=== PATIENT | male | born 1970 | race Caucasian/White ===

== ENCOUNTER → 2019-01-12 | Outpatient (CLI) | payer BC ==
[~2019-01-12] MED LIST: ASPI81CH PO; ATOR40TA PO; CEFU500T30 PO; CLIN300 PO; HYDRA25 PO; Lopressor 25 mg25 MG PO; NITR.4SL SL
[2019-01-12 09:20] LABS: BASOPHILS ABSOLUTE AUTO 0.01 K/mm3 (0.00-0.23); BASOPHILS PERCENT AUTO 0 % (0-2); EOSINOPHILS ABSOLUTE AUTO 0.11 K/mm3 (0.00-0.68); EOSINOPHILS PERCENT AUTO 2 % (0-6); Hematocrit 43.6 % (37.0-53.0); Hemoglobin 14.4 g/dL (13.5-17.5); IMMATURE GRAN ABSOLUTE AUTO 0.02 K/mm3 (0.00-0.10); IMMATURE GRAN PERCENT AUTO 0 % (0-1); LYMPHOCYTES ABSOLUTE AUTO 1.81 K/mm3 (0.84-5.20); LYMPHOCYTES PERCENT AUTO 24 % (21-46); MONOCYTES ABSOLUTE AUTO 0.62 K/mm3 (0.16-1.47); MONOCYTES PERCENT AUTO 8 % (4-13); Mean Corpuscular HGB 26.7 pg (26.0-34.0); Mean Corpuscular Volume 81 fL (80-100); Mean Platelet Volume 10.4 fL (9.1-12.4); NEUTROPHILS PERCENT AUTO 66 % (41-73); Platelet Count 237 K/mm3 (150-400); RDW Coefficient Variation 13.3 % (11.7-14.2); RDW Standard Deviation 38.6 fL (35.1-46.3); Red Blood Cell Count 5.39 M/mm3 (4.30-5.90); White Blood Cell Count 7.57 K/mm3 (4.00-11.30)
[2019-01-12 09:59] LABS: Alanine Aminotransfer (ALT/SGP 47 U/L (12-78); Albumin, Blood 3.8 g/dL (3.4-5.0); Albumin/Globulin Ratio 0.9 (0.8-1.8); Alk Phos 47 U/L (50-136); Anion Gap 9 mmol/L (6-16); Aspartate Aminotrans (AST/SGOT 23 U/L (12-37); Bilirubin, Total 0.3 mg/dL (0.1-1.0); Blood Urea Nitrogen 15 mg/dL (8-24); Bun/Creatinine Ratio 17.6 (12.0-20.0); CO2, Blood 26 mmol/L (21-32); CPK Creatine Kinase 195 U/L (39-308); Calcium, Blood 8.6 mg/dL (8.5-10.1); Chloride, Blood 106 mmol/L (98-108); Creatinine, Blood 0.85 mg/dL (0.60-1.20); Free Thyroxine 0.98 ng/dL (0.70-1.60); Globulin, Blood 4.2 g/dL (2.2-4.0); Glomerular Filtration Rate >60 (60-); Glucose, Blood 112 mg/dL (70-99); Sodium, Blood 141 mmol/L (136-145); Troponin I <0.015 ng/mL (0.000-0.040)
[2019-01-12 11:35] LABS: CHOL/HDL RATIO 3.3; Cholesterol 130 mg/dL (50-200); HDL Cholesterol 39 mg/dL (>39); LDL/HDL RATIO 1.7; Low Density Lipoprotein Chol 64 mg/dL (0-110); Triglycerides 133 mg/dL (30-160); Very Low Density Lipoprot Chol 26 mg/dL (6-32)
== END | disposition home or self-care (01) ==
LOC: LAB SHORT 09:08 → LAB EV 09:08
PROVIDERS: General Practice
DX: R07.89 Other chest pain (principal); R53.81 Other malaise
CPT/HCPCS: 80053; 80061; 82550; 84439; 84443; 84484; 85025

== ENCOUNTER 2019-01-16 19:21 | Observation (INO) | payer BC ==
[~2019-01-16] VITALS: Ht 182.9 cm; Wt 133.8 kg
[2019-01-16 20:27] LABS: BASOPHILS ABSOLUTE AUTO 0.02 K/mm3 (0.00-0.23); BASOPHILS PERCENT AUTO 0 % (0-2); EOSINOPHILS ABSOLUTE AUTO 0.21 K/mm3 (0.00-0.68); EOSINOPHILS PERCENT AUTO 2 % (0-6); Hematocrit 44.4 % (37.0-53.0); Hemoglobin 14.4 g/dL (13.5-17.5); IMMATURE GRAN ABSOLUTE AUTO 0.02 K/mm3 (0.00-0.10); IMMATURE GRAN PERCENT AUTO 0 % (0-1); LYMPHOCYTES PERCENT AUTO 24 % (21-46); MONOCYTES ABSOLUTE AUTO 0.73 K/mm3 (0.16-1.47); MONOCYTES PERCENT AUTO 8 % (4-13); Mean Corpuscular HGB 27.1 pg (26.0-34.0); Mean Corpuscular HGB Conc 32.4 g/dL (31.5-36.5); Mean Platelet Volume 10.1 fL (9.1-12.4); NEUTROPHILS ABSOLUTE AUTO 5.93 K/mm3 (1.96-9.15); NEUTROPHILS PERCENT AUTO 65 % (41-73); Platelet Count 252 K/mm3 (150-400); RDW Coefficient Variation 12.8 % (11.7-14.2); RDW Standard Deviation 38.7 fL (35.1-46.3); Red Blood Cell Count 5.32 M/mm3 (4.30-5.90); White Blood Cell Count 9.11 K/mm3 (4.00-11.30)
[2019-01-16 20:32] LABS: Mean Corpuscular Volume 84 fL (80-100)
[2019-01-16 20:47] LABS: Alanine Aminotransfer (ALT/SGP 44 U/L (12-78); Albumin, Blood 3.9 g/dL (3.4-5.0); Albumin/Globulin Ratio 0.9 (0.8-1.8); Alk Phos 50 U/L (50-136); Anion Gap 6 mmol/L (6-16); Aspartate Aminotrans (AST/SGOT 20 U/L (12-37); Bilirubin, Total 0.2 mg/dL (0.1-1.0); Blood Urea Nitrogen 17 mg/dL (8-24); Bun/Creatinine Ratio 18.1 (12.0-20.0); CO2, Blood 26 mmol/L (21-32); Calcium, Blood 8.8 mg/dL (8.5-10.1); Chloride, Blood 108 mmol/L (98-108); Creatinine, Blood 0.94 mg/dL (0.60-1.20); Globulin, Blood 4.3 g/dL (2.2-4.0); Glomerular Filtration Rate >60 (60-); Glucose, Blood 94 mg/dL (70-99); Potassium, Blood 3.5 mmol/L (3.5-5.5); Sodium, Blood 140 mmol/L (136-145); Total Protein, Blood 8.2 g/dL (6.4-8.2); Troponin I <0.015 ng/mL (0.000-0.040)
[2019-01-17] MEDS ORDERED: CEFU500T30 PO ×2 (02:22)
[2019-01-17 06:18] LABS: Very Low Density Lipoprot Chol 42 mg/dL (6-32)
[2019-01-17 06:22] LABS: CHOL/HDL RATIO 3.9; Cholesterol 136 mg/dL (50-200); HDL Cholesterol 35 mg/dL (>39); LDL/HDL RATIO 1.7; Low Density Lipoprotein Chol 59 mg/dL (0-110); Triglycerides 210 mg/dL (30-160)
[2019-01-17] MEDS ORDERED: NITR.4SL SL ×2 (13:02)
[2019-01-17] MEDS ORDERED: CLIN300 PO (13:03)
[2019-01-18 05:43] LABS: BASOPHILS ABSOLUTE AUTO 0.02 K/mm3 (0.00-0.23); BASOPHILS PERCENT AUTO 0 % (0-2); EOSINOPHILS ABSOLUTE AUTO 0.22 K/mm3 (0.00-0.68); EOSINOPHILS PERCENT AUTO 2 % (0-6); Hematocrit 46.2 % (37.0-53.0); Hemoglobin 14.7 g/dL (13.5-17.5); IMMATURE GRAN ABSOLUTE AUTO 0.02 K/mm3 (0.00-0.10); IMMATURE GRAN PERCENT AUTO 0 % (0-1); LYMPHOCYTES ABSOLUTE AUTO 2.29 K/mm3 (0.84-5.20); LYMPHOCYTES PERCENT AUTO 25 % (21-46); MONOCYTES ABSOLUTE AUTO 0.73 K/mm3 (0.16-1.47); MONOCYTES PERCENT AUTO 8 % (4-13); Mean Corpuscular HGB 26.7 pg (26.0-34.0); Mean Corpuscular HGB Conc 31.8 g/dL (31.5-36.5); Mean Corpuscular Volume 84 fL (80-100); Mean Platelet Volume 10.2 fL (9.1-12.4); NEUTROPHILS ABSOLUTE AUTO 5.79 K/mm3 (1.96-9.15); NEUTROPHILS PERCENT AUTO 64 % (41-73); Platelet Count 269 K/mm3 (150-400); RDW Standard Deviation 39.8 fL (35.1-46.3); White Blood Cell Count 9.07 K/mm3 (4.00-11.30)
[2019-01-18 06:15] LABS: Alanine Aminotransfer (ALT/SGP 38 U/L (12-78); Alk Phos 50 U/L (50-136); Anion Gap 8 mmol/L (6-16); Aspartate Aminotrans (AST/SGOT 18 U/L (12-37); Bilirubin, Total 0.7 mg/dL (0.1-1.0); Blood Urea Nitrogen 16 mg/dL (8-24); Bun/Creatinine Ratio 16.9 (12.0-20.0); CO2, Blood 25 mmol/L (21-32); Calcium, Blood 8.6 mg/dL (8.5-10.1); Chloride, Blood 109 mmol/L (98-108); Creatinine, Blood 0.95 mg/dL (0.60-1.20); Globulin, Blood 4.1 g/dL (2.2-4.0); Glomerular Filtration Rate >60 (60-); Glucose, Blood 111 mg/dL (70-99); Potassium, Blood 3.8 mmol/L (3.5-5.5); Sodium, Blood 142 mmol/L (136-145); Total Protein, Blood 8.1 g/dL (6.4-8.2)
[2019-01-18] MEDS ORDERED: ASPI81CH PO ×2 (15:27)
[2019-01-18] MEDS ORDERED: ATOR40TA PO ×2 (15:28)
[2019-01-18] MEDS ORDERED: Lopressor 25 mg25 MG PO ×2 (15:29)
[2019-01-18] MEDS ORDERED: HYDRA25 PO ×2 (15:30)
== END 2019-01-18 16:14 | disposition home or self-care (01) ==
LOC: ER 19:21 → ERHOLD 19:22 → MEDS 01-17 16:11
PROVIDERS: Family Medicine; Physician Assistant; ADMIT Hospitalist
DX: R07.9 Chest pain, unspecified (principal); I10 Essential (primary) hypertension; R94.31 Abnormal electrocardiogram [ECG] [EKG]; E78.5 Hyperlipidemia, unspecified; G47.33 Obstructive sleep apnea (adult) (pediatric); E66.01 Morbid (severe) obesity due to excess calories; Z88.0 Allergy status to penicillin; Z99.89 Dependence on other enabling machines and devices; Z68.41 Body mass index [BMI] 40.0-44.9, adult
CPT/HCPCS: 36415; 71046; 80053; 80061; 83036; 84484; 85025; 93005; 93010; 93017; 93306; 94660; 96372; 96374; 99285-25; G0378; J0360; J1650

== ENCOUNTER 2019-01-25 08:09 | Observation (INO) | payer BC ==
[~2019-01-25] VITALS: Ht 182.9 cm; Wt 131.5 kg
[2019-01-25 08:52] LABS: BASOPHILS ABSOLUTE AUTO 0.02 K/mm3 (0.00-0.23); BASOPHILS PERCENT AUTO 0 % (0-2); EOSINOPHILS ABSOLUTE AUTO 0.22 K/mm3 (0.00-0.68); EOSINOPHILS PERCENT AUTO 3 % (0-6); Hematocrit 43.5 % (37.0-53.0); IMMATURE GRAN ABSOLUTE AUTO 0.01 K/mm3 (0.00-0.10); IMMATURE GRAN PERCENT AUTO 0 % (0-1); LYMPHOCYTES ABSOLUTE AUTO 2.03 K/mm3 (0.84-5.20); LYMPHOCYTES PERCENT AUTO 26 % (21-46); MONOCYTES ABSOLUTE AUTO 0.66 K/mm3 (0.16-1.47); MONOCYTES PERCENT AUTO 9 % (4-13); Mean Corpuscular HGB 26.9 pg (26.0-34.0); Mean Corpuscular HGB Conc 32.2 g/dL (31.5-36.5); Mean Corpuscular Volume 84 fL (80-100); Mean Platelet Volume 10.4 fL (9.1-12.4); NEUTROPHILS ABSOLUTE AUTO 4.79 K/mm3 (1.96-9.15); NEUTROPHILS PERCENT AUTO 62 % (41-73); Platelet Count 234 K/mm3 (150-400); RDW Coefficient Variation 12.9 % (11.7-14.2); RDW Standard Deviation 39.6 fL (35.1-46.3); Red Blood Cell Count 5.21 M/mm3 (4.30-5.90); White Blood Cell Count 7.73 K/mm3 (4.00-11.30)
[2019-01-25 09:18] LABS: Alanine Aminotransfer (ALT/SGP 45 U/L (12-78); Albumin, Blood 3.9 g/dL (3.4-5.0); Alk Phos 46 U/L (50-136); Anion Gap 4 mmol/L (6-16); Aspartate Aminotrans (AST/SGOT 22 U/L (12-37); Bilirubin, Total 0.4 mg/dL (0.1-1.0); Blood Urea Nitrogen 14 mg/dL (8-24); Bun/Creatinine Ratio 16.2 (12.0-20.0); CO2, Blood 28 mmol/L (21-32); Calcium, Blood 8.8 mg/dL (8.5-10.1); Chloride, Blood 109 mmol/L (98-108); Creatinine, Blood 0.87 mg/dL (0.60-1.20); Globulin, Blood 3.9 g/dL (2.2-4.0); Glomerular Filtration Rate >60 (60-); Glucose, Blood 111 mg/dL (70-99); Potassium, Blood 4.1 mmol/L (3.5-5.5); Sodium, Blood 141 mmol/L (136-145); Total Protein, Blood 7.8 g/dL (6.4-8.2); Troponin I <0.015 ng/mL (0.000-0.040)
[2019-01-25 17:57] LABS: CPK Creatine Kinase 127 U/L (39-308); Creatine Kinase MB 1.6 ng/mL (0.0-3.6); Creatine Kinase MB Index 1.3 (0.0-4.0); Troponin I <0.015 ng/mL (0.000-0.040)
--- NOTE | 2019-01-25 19:17 | NUR ---
SHIFT SUMMARY PATIENT A&O X4, INDEPENDENT IN THE ROOM. DENIES ANY PAIN, SOB, OR NAUSEA. TELE NSR @ 69 PER PHLEBOTOMY TECH. PATIENT REFUSES CONT. PULSE OX. APPEARS VERY ANXIOUS. C/O OF DIARRHEA. RN NOTIFIED PHYSICIAN. NO ACUTE CHANGES THIS SHIFT. NPO AFTER BREAKFAST FOR A STRESS TEST.
[2019-01-26 01:04] LABS: Hematocrit 43.1 % (37.0-53.0); Hemoglobin 13.8 g/dL (13.5-17.5); Mean Corpuscular HGB 26.6 pg (26.0-34.0); Mean Corpuscular Volume 83 fL (80-100); Mean Platelet Volume 10.2 fL (9.1-12.4); Platelet Count 234 K/mm3 (150-400); RDW Coefficient Variation 12.9 % (11.7-14.2); RDW Standard Deviation 38.7 fL (35.1-46.3); Red Blood Cell Count 5.18 M/mm3 (4.30-5.90); White Blood Cell Count 9.68 K/mm3 (4.00-11.30)
[2019-01-26 01:30] LABS: Anion Gap 6 mmol/L (6-16); Blood Urea Nitrogen 16 mg/dL (8-24); Bun/Creatinine Ratio 16.4 (12.0-20.0); CO2, Blood 28 mmol/L (21-32); Calcium, Blood 9.1 mg/dL (8.5-10.1); Chloride, Blood 109 mmol/L (98-108); Creatinine, Blood 0.97 mg/dL (0.60-1.20); Glomerular Filtration Rate >60 (60-); Glucose, Blood 101 mg/dL (70-99); Potassium, Blood 3.9 mmol/L (3.5-5.5); Sodium, Blood 143 mmol/L (136-145)
[2019-01-26 01:34] LABS: CPK Creatine Kinase 114 U/L (39-308); Creatine Kinase MB 1.2 ng/mL (0.0-3.6); Creatine Kinase MB Index 1.1 (0.0-4.0); Troponin I <0.015 ng/mL (0.000-0.040)
--- NOTE | 2019-01-26 05:50 | NUR ---
*SHIFT SUMMARY* PATIENT IS ALERT AND ORIENTED. ON ROOM AIR. USES CPAP AT NIGHT. NO COMPLAINTS OF CHEST PAIN OR SOB. PT HAS TELE ON. PT SHOWERED DURING SHIFT, ORDER RECIEVED STATING OKAY TO REMOVE FOR SHOWER. PT SLEPT MOST OF THE NIGHT. NO CAFFEINE AFTER MIDNIGHT, AND IS TO BE NPO AFTER BREAKFAST FOR STRESS TEST. VITAL SIGNS ARE STABLE. CALL LIGHT IN REACH, BED LOWERED AND LOCKED.
--- NOTE | 2019-01-26 16:59 | NUR ---
SHIFT SUMMARY PATIENT A&O X4, INDEPENDENT IN THE ROOM. DENIES ANY PAIN OR SOB THIS SHIFT. RN MEDICATED X1 FOR A HEADACHE. PATIENT HAD A STRESS TEST DONE TODAY. HAS RESTED THROUGHOUT THE SHIFT. NO ACUTE CHANGES. RN WILL CONTINUE TO MONITOR.
--- NOTE | 2019-01-27 06:25 | NUR ---
SHIFT SUMMARY PT A/O INDEPENDENT. DENIED CP WHEN ASKED. WORE CPAP T/O NOC. REFUSED TO PROVIDE STOOL SAMPLE TO R/O C DIFF. HE WAS ABLE TO SLEEP THROUGH THE NIGHT. CALL LIGHT IN REACH
--- NOTE | 2019-01-27 15:05 | NUR ---
7580 PT DISCHARGED HOME VIA PERSONAL VEHICLE ACCOMPANIED BY . PT SELF AMBULATED TO FACILITY ENTRANCE PER HIS REQUEST. IV REMOVED. D/C PAPERWORK REVIEWED WITH PT AND COPY PROVIDED. NEW RX FAXED TO [facility] PER PT REQUEST. EDGE CATHETER BAG CHANGED TO LEG BAG PT INSTRUCTED ON USE.
--- NOTE | 2019-01-27 15:10 | NUR ---
0340 PT DISCHARGED HOME VIA PERSONAL VEHICLE ACCOMPANIED BY . PT SELF AMBULATED TO FACILITY ENTRANCE PER HIS REQUEST. IV REMOVED, D/C PAPERWORK REVIEWED WITH PT AND COPY PROVIDED. NEW RX FAXED TO [facility] PER PT REQUEST. NO NEW CHANGES.
== END 2019-01-27 14:15 | disposition home or self-care (01) ==
LOC: ER 08:09 → MEDS 08:10 → ER 12:25 → MEDS 12:25
PROVIDERS: Emergency Medicine; ADMIT Internal Medicine
DX: R07.9 Chest pain, unspecified (principal); I10 Essential (primary) hypertension; E78.5 Hyperlipidemia, unspecified; G47.33 Obstructive sleep apnea (adult) (pediatric); E66.01 Morbid (severe) obesity due to excess calories; Z99.89 Dependence on other enabling machines and devices; Z79.82 Long term (current) use of aspirin; Z79.899 Other long term (current) drug therapy; Z88.1 Allergy status to other antibiotic agents; Z68.39 Body mass index [BMI] 39.0-39.9, adult
CPT/HCPCS: 36415; 78452; 80048; 80053; 82550; 82553; 84484; 85025; 85027; 93005; 93010; 93017; 99285-25; A9500; G0378; J0706; J1650; J2785

== ENCOUNTER 2019-02-13 18:18 | Emergency (ER) | payer BC, OTHER ==
[~2019-02-13] VITALS: Ht 182.9 cm; Wt 131.5 kg
[2019-02-13] MEDS ORDERED: LOSA50 PO (18:39)
[2019-02-13 19:01] LABS: BASOPHILS ABSOLUTE AUTO 0.03 K/mm3 (0.00-0.23); BASOPHILS PERCENT AUTO 0 % (0-2); EOSINOPHILS ABSOLUTE AUTO 0.22 K/mm3 (0.00-0.68); EOSINOPHILS PERCENT AUTO 2 % (0-6); Hematocrit 45.2 % (37.0-53.0); Hemoglobin 14.7 g/dL (13.5-17.5); IMMATURE GRAN ABSOLUTE AUTO 0.03 K/mm3 (0.00-0.10); IMMATURE GRAN PERCENT AUTO 0 % (0-1); LYMPHOCYTES ABSOLUTE AUTO 2.64 K/mm3 (0.84-5.20); LYMPHOCYTES PERCENT AUTO 26 % (21-46); MONOCYTES ABSOLUTE AUTO 0.85 K/mm3 (0.16-1.47); MONOCYTES PERCENT AUTO 8 % (4-13); Mean Corpuscular HGB Conc 32.5 g/dL (31.5-36.5); Mean Corpuscular Volume 83 fL (80-100); Mean Platelet Volume 10.4 fL (9.1-12.4); NEUTROPHILS ABSOLUTE AUTO 6.37 K/mm3 (1.96-9.15); NEUTROPHILS PERCENT AUTO 63 % (41-73); Platelet Count 238 K/mm3 (150-400); RDW Coefficient Variation 13.1 % (11.7-14.2); RDW Standard Deviation 39.4 fL (35.1-46.3); Red Blood Cell Count 5.44 M/mm3 (4.30-5.90); White Blood Cell Count 10.14 K/mm3 (4.00-11.30)
[2019-02-13 19:28] LABS: Troponin I <0.015 ng/mL (0.000-0.040)
[2019-02-13 19:38] LABS: Alanine Aminotransfer (ALT/SGP 42 U/L (12-78); Albumin, Blood 4.4 g/dL (3.4-5.0); Alk Phos 55 U/L (50-136); Anion Gap 9 mmol/L (6-16); Aspartate Aminotrans (AST/SGOT 22 U/L (12-37); Bilirubin, Total 0.5 mg/dL (0.1-1.0); Blood Urea Nitrogen 15 mg/dL (8-24); Bun/Creatinine Ratio 15.7 (12.0-20.0); CO2, Blood 24 mmol/L (21-32); Calcium, Blood 9.2 mg/dL (8.5-10.1); Chloride, Blood 105 mmol/L (98-108); Creatinine, Blood 0.95 mg/dL (0.60-1.20); Globulin, Blood 4.2 g/dL (2.2-4.0); Glomerular Filtration Rate >60 (60-); Glucose, Blood 81 mg/dL (70-99); Potassium, Blood 3.5 mmol/L (3.5-5.5); Sodium, Blood 138 mmol/L (136-145); Total Protein, Blood 8.6 g/dL (6.4-8.2)
[2019-02-13] MEDS ORDERED: Voltaren100 GM TOP (20:06)
== END 2019-02-13 20:27 | disposition home or self-care (01) ==
LOC: ER 18:18
PROVIDERS: Physician Assistant
DX: R07.89 Other chest pain (principal); Z88.0 Allergy status to penicillin; Z79.899 Other long term (current) drug therapy; Z79.82 Long term (current) use of aspirin; I10 Essential (primary) hypertension; E78.00 Pure hypercholesterolemia, unspecified; E66.9 Obesity, unspecified
CPT/HCPCS: 36415; 71046; 80053; 84484; 85025; 93005; 93010; 96374; 99284-25; J1885

== ENCOUNTER 2021-06-23 20:07 | Emergency (ER) | payer BC ==
[~2021-06-23] VITALS: Ht 182.9 cm; Wt 136.1 kg
[~2021-06-23 20:07] MED LIST changes: +LOSA50 PO; +Voltaren100 GM TOP
[2021-06-23 21:32] LABS: BASOPHILS ABSOLUTE AUTO 0.01 K/mm3 (0.00-0.23); BASOPHILS PERCENT AUTO 0 % (0-2); EOSINOPHILS ABSOLUTE AUTO 0.06 K/mm3 (0.00-0.68); EOSINOPHILS PERCENT AUTO 1 % (0-6); Hematocrit 40.5 % (37.0-53.0); Hemoglobin 13.6 g/dL (13.5-17.5); IMMATURE GRAN ABSOLUTE AUTO 0.02 K/mm3 (0.00-0.10); IMMATURE GRAN PERCENT AUTO 0 % (0-1); LYMPHOCYTES ABSOLUTE AUTO 0.77 K/mm3 (0.84-5.20); LYMPHOCYTES PERCENT AUTO 16 % (21-46); MONOCYTES ABSOLUTE AUTO 0.83 K/mm3 (0.16-1.47); MONOCYTES PERCENT AUTO 17 % (4-13); Mean Corpuscular HGB 27.3 pg (26.0-34.0); Mean Corpuscular HGB Conc 33.6 g/dL (31.5-36.5); Mean Corpuscular Volume 81 fL (80-100); Mean Platelet Volume 10.2 fL (9.1-12.4); NEUTROPHILS ABSOLUTE AUTO 3.07 K/mm3 (1.96-9.15); NEUTROPHILS PERCENT AUTO 65 % (41-73); Platelet Count 183 K/mm3 (150-400); RDW Standard Deviation 41.4 fL (35.1-46.3); Red Blood Cell Count 4.99 M/mm3 (4.30-5.90); White Blood Cell Count 4.76 K/mm3 (4.00-11.30)
[2021-06-23 21:52] LABS: Troponin I <0.015 ng/mL (0.000-0.040)
[2021-06-23 21:53] LABS: Alanine Aminotransfer (ALT/SGP 67 U/L (12-78); Albumin, Blood 3.6 g/dL (3.4-5.0); Albumin/Globulin Ratio 0.9 (0.8-1.8); Alk Phos 45 U/L (50-136); Anion Gap 6 mmol/L (6-16); Aspartate Aminotrans (AST/SGOT 35 U/L (12-37); Bilirubin, Total 0.4 mg/dL (0.1-1.0); Blood Urea Nitrogen 19 mg/dL (8-24); Bun/Creatinine Ratio 15.8 (12.0-20.0); CO2, Blood 25 mmol/L (21-32); Calcium, Blood 8.9 mg/dL (8.5-10.1); Chloride, Blood 108 mmol/L (98-108); Globulin, Blood 3.9 g/dL (2.2-4.0); Glomerular Filtration Rate >60 (60-); Glucose, Blood 108 mg/dL (70-99); Potassium, Blood 3.5 mmol/L (3.5-5.5); Sodium, Blood 139 mmol/L (136-145); Total Protein, Blood 7.5 g/dL (6.4-8.2)
[2021-06-23] MEDS ORDERED: IBUP800 PO (22:49)
[2021-06-23] MEDS ORDERED: ONDA4ODT MM (22:49)
[2021-06-23] MEDS ORDERED: ACETAMINOPHEN500 MG PO (22:49)
== END 2021-06-23 23:59 | disposition home or self-care (01) ==
LOC: ER 20:07
PROVIDERS: Emergency Medicine
DX: U07.1 COVID-19 (principal); J12.82 Pneumonia due to coronavirus disease 2019; E86.0 Dehydration; R55 Syncope and collapse; I10 Essential (primary) hypertension; E78.00 Pure hypercholesterolemia, unspecified; Z88.1 Allergy status to other antibiotic agents; Z79.82 Long term (current) use of aspirin; Z79.899 Other long term (current) drug therapy
CPT/HCPCS: 71045; 80053; 83880; 84484; 85025; 93005; 93010; 99285-25; J0696

== ENCOUNTER 2021-06-29 10:22 | Emergency (ER) | payer BC ==
[~2021-06-29] VITALS: Ht 182.9 cm; Wt 136.1 kg
[~2021-06-29 10:22] MED LIST changes: +ACETAMINOPHEN500 MG PO; +IBUP800 PO; +ONDA4ODT MM
[2021-06-29 10:50] LABS: BASOPHILS PERCENT AUTO 0 % (0-2); EOSINOPHILS PERCENT AUTO 0 % (0-6); Hematocrit 42.5 % (37.0-53.0); Hemoglobin 14.1 g/dL (13.5-17.5); IMMATURE GRAN ABSOLUTE AUTO 0.01 K/mm3 (0.00-0.10); IMMATURE GRAN PERCENT AUTO 0 % (0-1); LYMPHOCYTES ABSOLUTE AUTO 0.56 K/mm3 (0.84-5.20); LYMPHOCYTES PERCENT AUTO 14 % (21-46); MONOCYTES ABSOLUTE AUTO 0.33 K/mm3 (0.16-1.47); MONOCYTES PERCENT AUTO 8 % (4-13); Mean Corpuscular HGB 26.6 pg (26.0-34.0); Mean Corpuscular HGB Conc 33.2 g/dL (31.5-36.5); Mean Corpuscular Volume 80 fL (80-100); Mean Platelet Volume 10.2 fL (9.1-12.4); NEUTROPHILS ABSOLUTE AUTO 3.05 K/mm3 (1.96-9.15); NEUTROPHILS PERCENT AUTO 77 % (41-73); Platelet Count 135 K/mm3 (150-400); RDW Coefficient Variation 13.7 % (11.7-14.2); RDW Standard Deviation 40.2 fL (35.1-46.3); White Blood Cell Count 3.95 K/mm3 (4.00-11.30)
[2021-06-29 11:25] LABS: Alanine Aminotransfer (ALT/SGP 66 U/L (12-78); Albumin, Blood 3.5 g/dL (3.4-5.0); Albumin/Globulin Ratio 0.7 (0.8-1.8); Alk Phos 38 U/L (50-136); Anion Gap 9 mmol/L (6-16); Aspartate Aminotrans (AST/SGOT 52 U/L (12-37); Bilirubin, Total 0.8 mg/dL (0.1-1.0); Blood Urea Nitrogen 13 mg/dL (8-24); Bun/Creatinine Ratio 10.7 (12.0-20.0); CO2, Blood 23 mmol/L (21-32); Calcium, Blood 8.2 mg/dL (8.5-10.1); Chloride, Blood 103 mmol/L (98-108); Creatinine, Blood 1.21 mg/dL (0.60-1.20); Globulin, Blood 4.7 g/dL (2.2-4.0); Glomerular Filtration Rate >60 (60-); Glucose, Blood 151 mg/dL (70-99); Lactate Dehydrogenase (Ld),Bld 349 U/L (100-240); Potassium, Blood 3.6 mmol/L (3.5-5.5); Sodium, Blood 135 mmol/L (136-145); Total Protein, Blood 8.2 g/dL (6.4-8.2)
[2021-06-29 11:30] LABS: Ferritin, Serum 2194 ng/mL (26-388)
[2021-06-29] MEDS ORDERED: DEXA6 PO (11:38)
== END 2021-06-29 12:44 | disposition home or self-care (01) ==
LOC: ER 10:22
PROVIDERS: Emergency Medicine
DX: J18.9 Pneumonia, unspecified organism (principal); R09.02 Hypoxemia; E66.9 Obesity, unspecified; I10 Essential (primary) hypertension; Z88.0 Allergy status to penicillin; Z68.41 Body mass index [BMI] 40.0-44.9, adult
CPT/HCPCS: 36415; 71045; 80053; 82728; 83615; 84484; 85025; 93005; 93010; 96374; 99285-25; J1100

== ENCOUNTER 2021-07-02 07:39 | Inpatient (IN) | payer BC ==
[~2021-07-02] VITALS: Ht 182.9 cm; Wt 123.3 kg
[~2021-07-02 07:39] MED LIST changes: +DEXA6 PO
[2021-07-02 08:05] LABS: BASOPHILS ABSOLUTE AUTO 0.01 K/mm3 (0.00-0.23); BASOPHILS PERCENT AUTO 0 % (0-2); EOSINOPHILS PERCENT AUTO 0 % (0-6); Hematocrit 42.7 % (37.0-53.0); Hemoglobin 14.1 g/dL (13.5-17.5); IMMATURE GRAN ABSOLUTE AUTO 0.06 K/mm3 (0.00-0.10); IMMATURE GRAN PERCENT AUTO 1 % (0-1); LYMPHOCYTES ABSOLUTE AUTO 0.83 K/mm3 (0.84-5.20); LYMPHOCYTES PERCENT AUTO 10 % (21-46); MONOCYTES ABSOLUTE AUTO 0.47 K/mm3 (0.16-1.47); MONOCYTES PERCENT AUTO 6 % (4-13); Mean Corpuscular HGB 26.9 pg (26.0-34.0); Mean Corpuscular Volume 81 fL (80-100); Mean Platelet Volume 10.4 fL (9.1-12.4); NEUTROPHILS ABSOLUTE AUTO 7.19 K/mm3 (1.96-9.15); NEUTROPHILS PERCENT AUTO 84 % (41-73); Platelet Count 236 K/mm3 (150-400); RDW Standard Deviation 41.5 fL (35.1-46.3); Red Blood Cell Count 5.25 M/mm3 (4.30-5.90); White Blood Cell Count 8.56 K/mm3 (4.00-11.30)
[2021-07-02 08:42] LABS: Albumin, Blood 3.3 g/dL (3.4-5.0); Albumin/Globulin Ratio 0.7 (0.8-1.8); Bilirubin, Total 0.7 mg/dL (0.1-1.0); Bun/Creatinine Ratio 18.7 (12.0-20.0); Calcium, Blood 9.4 mg/dL (8.5-10.1); Creatinine, Blood 1.87 mg/dL (0.60-1.20); Potassium, Blood 3.7 mmol/L (3.5-5.5); Total Protein, Blood 8.3 g/dL (6.4-8.2)
[2021-07-02] MEDS ORDERED: LOSA50 PO (11:04)
[2021-07-02] MEDS ORDERED: CLON.1 PO (11:05)
[2021-07-02] MEDS ORDERED: AMLO5 PO (11:06)
--- NOTE | 2021-07-02 19:02 | NUR ---
1855 TO ROOM PER CRISTINA GARCIA TO TRANSFER TO BED. PT STATES VERY WEAK. PT REPORTS SOB AT REST. OXYGEN AT 15 LITGERS NON REBREATHER
[2021-07-03 04:48] LABS: BASOPHILS ABSOLUTE AUTO 0.01 K/mm3 (0.00-0.23); BASOPHILS PERCENT AUTO 0 % (0-2); EOSINOPHILS PERCENT AUTO 0 % (0-6); Hematocrit 40.4 % (37.0-53.0); Hemoglobin 13.2 g/dL (13.5-17.5); IMMATURE GRAN ABSOLUTE AUTO 0.07 K/mm3 (0.00-0.10); IMMATURE GRAN PERCENT AUTO 1 % (0-1); LYMPHOCYTES ABSOLUTE AUTO 0.93 K/mm3 (0.84-5.20); LYMPHOCYTES PERCENT AUTO 10 % (21-46); MONOCYTES PERCENT AUTO 8 % (4-13); Mean Corpuscular HGB 26.9 pg (26.0-34.0); Mean Corpuscular HGB Conc 32.7 g/dL (31.5-36.5); Mean Corpuscular Volume 82 fL (80-100); Mean Platelet Volume 10.2 fL (9.1-12.4); NEUTROPHILS ABSOLUTE AUTO 7.47 K/mm3 (1.96-9.15); NEUTROPHILS PERCENT AUTO 81 % (41-73); Platelet Count 255 K/mm3 (150-400); RDW Coefficient Variation 14.1 % (11.7-14.2); RDW Standard Deviation 42.3 fL (35.1-46.3); Red Blood Cell Count 4.91 M/mm3 (4.30-5.90); White Blood Cell Count 9.18 K/mm3 (4.00-11.30)
[2021-07-03 05:00] LABS: Calcium, Blood 8.9 mg/dL (8.5-10.1); Creatinine, Blood 1.32 mg/dL (0.60-1.20); Potassium, Blood 3.8 mmol/L (3.5-5.5)
--- NOTE | 2021-07-03 06:39 | NUR ---
SHIFT SUMMARY PATIENT LETHARGIC, WITH MUMBLED SPEECH, FOLLOWING SOME COMMANDS, WITH GEN WEAKNESS. LOTS OF GRUNTING AND MOANING RESPONSES. DID NOT TOLERATE BIPAP ALL THAT WELL AND KEPT MESSING WITH SEAL BUT WAS ABLE TO KEEP ON HIM MAJORITY OF NIGHT WITH CONSTANT REMINDERS. NOW ON OXYMIZER 15L FOR A DRINK AND MED BREAK THIS AM AND TOLERAING WELL SATING 92%. TACHYPENIC. PRODUCTIVE COUGH. COARSE CRACKLES T/O. AFIB ON THE MONITOR. VSS. CLINIMIX RUNNING PER ORDER. Q2H TURNS AND ORAL CARE. TOLERATING WATER BUT HAVE NOT SEEN HIM YET. FULL FEEDER. BEDREST AT THIS TIME. NO ACUTE CONCENRS AT THIS TIME. WILL CONTINUE TO MONITOR UNTIL REPORT GIVEN TO DAYSHIFT RN.
--- NOTE | 2021-07-03 07:19 | NUR ---
SHIFT SUMMARY PATIENT FOUND TO BE A ANXIOUS MAN WHO IS A&OX4 WITH GEN WEAKNESS. DESPITE AGREEING "TO DO ANYTHING TO GET BETTER" PATIENT REFUSED CPAP AND BIPAP OVERNIGHT EVEN AFTER REPEATED EDUCATION. CURRENTLY ON NRB 15L SATING HIGH 80'S. TACHYPENIC. DRY COUGH. SR ON THE MONITOR. EDGE INSERTED TO HELP WITH DESATURATION WITH EXERTION. DRAINING WELL TO GRAVITY. POOR APPETITE. MOVES SELF WELL IN BED BUT VERY WEAK OVERALL. REPORT GIVEN TO DONTAE CRABTREE AND CARE ENDORSED TO HER.
--- NOTE | 2021-07-03 12:07 | NUR ---
CARE ASSUMPTION PATIENT IS ALERT AND ORIENTATED X4. VSS. SPO2 >90% ON NON REBREATHER AT 15L. TELE SR 70S. PATIENT REPORTS NO PAIN. PATIENT WAS DESATING AND REPOSITION ON HIS SIDE AND HIS O2 SATS HAVE BEEN >90% SINCE THIS. PATIENT DID NOT EAT BREAKFAST THIS MORNING, STATED NOT HUNGRY. EDGE IN PLACE DRAINING WITH GRAVITY. PATIENT RESTING IN BED. CALL LIGHT WITHIN REACH. I WILL CONTINUE TO MONITOR AND PROVIDE CARE.
--- NOTE | 2021-07-03 13:02 | NUR ---
LOW 02 SAT PATIENT SPO2 DROPPED INTO LOW 80S HIGH 70S ON THE NRB MAXED OUT. PATIENT AGREED TO GOING ONTO AIRVO AND TO PRONE. PATIENT REPOSITIONED TO PRONE ON AIRVO 60L 90%. PATIENT SPO2 FLUCTUATES FROM 88-90%. NEXT STEP IS TO GO ON A BIPAP IF 02 SATS DO NOT IMPROVE. CALL LIGHT WITHIN REACH. WILL CONTINUE TO MONITOR AND PROVIDE CARE.
--- NOTE | 2021-07-03 14:20 | NUR ---
02 UPDATE PATIENT WENT ON BIPAP 20/06 94% DUE TO DESATTING IN THE LOW 80S. PATIENT WITH BIPAP IN PLACE AND CALL LIGHT WITHIN REACH.
--- NOTE | 2021-07-03 16:00 | NUR ---
O2 UPDATE PATIENT ON BIPAPA AND O2 SATS IN THE 80S. THIS RN AND RESPIRATORY CARE WENT IN AND REPOSITIONED THE PATIENT. WE SUGGESTED THAT THE PATIENT SHAVE THEIR MORGAN SO THE BIPAP CAN HAVE A BETTER SEAL. THE PATIENT AGREED TO THIS. THE PATIENT BIPAP IS AT 14/8 93% AND THE PATIENT SPO2 >90%. THIS HELPED CREATE A GOOD SEAL FOR THE PATIENT. CALL LIGHT WITHIN REACH. WILL CONTINUE TO MONITOR AND PROVIDE CARE.
--- NOTE | 2021-07-03 18:25 | NUR ---
PATIENT TO FLOOR FROM PCU, REPORT FROM ARMIN, 98.4 TEMP, BIPAP SETTINGS FIO2 90% 20/06, SATS AT 93%, MINIMAL INTERACTION, MAKES NEEDS KNOWN, OREINTED TO SELF PLACE AND TIME, GOOD PULSES, RESPIRATION 19, REPOSITIONS SELF IN BED
--- NOTE | 2021-07-03 18:52 | NUR ---
SHIFT SUMMARY/TRANSFER PATIENT ALERT AND ORIENTATED X4. SPO2 >90% ON BIPAP 14/8 93% TELE SINUS MICHAEL 50S. EDGE IN PLACE DRAINING WITH GRAVITY CLEAR YELLOW. PATIENT TRANSFERED TO ICU, FOR CLOSER MONITORING ON HIS 02 SATS. PATIENT TRANSFERED BY PCU BY WITH RT, AND ON BIPAP. DOTNAE CRABTREE GAVE REPORT TO THE ICU NURSE.
--- NOTE | 2021-07-03 23:51 | NUR ---
ASSUMED PT CARE AT 1900 FROM LEYDA HINES PT IS ALERT AND ORIENTED AND ABLE TO MAKE HIS NEEDS KNOWN. BIPAP DEPENDENT; 14/8; FIO2 90%, WHICH REQUIRED TO BE INCREASED TO 16/10 WITH 100% FIO2 AFTER A PIECE WAS DISPLACED FROM BIPAP AND PT HAD A DIFFICULT TIME RECOVERING SATURATIONS. PT REQUESTED BREAKS FROM BIPAP FOR SIPS OF WATER; HOWEVER, UNABLE TO SUSTAIN OXYGENATION FOR LONG PERIODS OF TIME. AIRVO EQUIPMENT NOT AVAILABLE IN ORDER TO PROVIDE LONG BREAKS. PT DOESN'T APPEAR TO UNDERSTAND HOW MUCH SUPPORT HE IS REQUIRING AND NEEDED EDUCATED AND REINFORCEMENT. PT WAS COMPLIANT WITH GOING BACK ON THE BIPAP AND ACTIVELY PARTICIPATED IN ORAL CARES. STARTED ON PRECEDEX D/T PT STATING HE WAS STARTING TO FEEL "PANICKY". EDGE CATHETER IS PATENT AND DRAINING DARK, RICHARD COLORED URINE TO GRAVITY. CALL LIGHT IS WITHIN REACH AND PT IS ABLE TO MAKE HIS NEEDS KNOWN. UPDATE GIVEN TO PERCY. SEE SHIFT SUMMARY FOR FURTHER DETAILS.
[2021-07-04 00:57] LABS: Source, Urine Catheter
[2021-07-04 01:00] LABS: Bilirubin, Urine Neg (Neg); Blood, Urine 4+ (Neg); Glucose Qualitative, Urine Neg (Neg); Ketones, Urine Neg (Neg); Leukocyte Esterase, Urine Neg (Neg); Nitrite, Urine Neg (Neg); Protein, Urine 1+ (Neg); Urobilinogen, Urine 1+ (Normal)
[2021-07-04 01:01] LABS: Appearance, Urine Clear (Clear); Color, Urine Yellow (P-Yellow)
[2021-07-04 01:06] LABS: Bacteria Rare /hpf; Red Blood Cells, Urine 25-50 /hpf (0-2); Squamous Epithelial Cells Rare /hpf (Few); White Blood Cells, Urine Rare /hpf (0-5)
[2021-07-04 03:40] LABS: Hematocrit 39.1 % (37.0-53.0); Hemoglobin 12.8 g/dL (13.5-17.5); Mean Corpuscular HGB 26.6 pg (26.0-34.0); Mean Corpuscular HGB Conc 32.7 g/dL (31.5-36.5); Mean Corpuscular Volume 81 fL (80-100); Mean Platelet Volume 9.6 fL (9.1-12.4); Platelet Count 265 K/mm3 (150-400); RDW Coefficient Variation 13.8 % (11.7-14.2); RDW Standard Deviation 40.7 fL (35.1-46.3); Red Blood Cell Count 4.82 M/mm3 (4.30-5.90); White Blood Cell Count 6.21 K/mm3 (4.00-11.30)
[2021-07-04 04:12] LABS: Alanine Aminotransfer (ALT/SGP 46 U/L (12-78); Albumin, Blood 2.7 g/dL (3.4-5.0); Albumin/Globulin Ratio 0.6 (0.8-1.8); Alk Phos 38 U/L (50-136); Anion Gap 6 mmol/L (6-16); Aspartate Aminotrans (AST/SGOT 47 U/L (12-37); Bilirubin, Total 0.7 mg/dL (0.1-1.0); Blood Urea Nitrogen 33 mg/dL (8-24); Bun/Creatinine Ratio 30.8 (12.0-20.0); CO2, Blood 26 mmol/L (21-32); Calcium, Blood 8.9 mg/dL (8.5-10.1); Chloride, Blood 108 mmol/L (98-108); Creatinine, Blood 1.07 mg/dL (0.60-1.20); Globulin, Blood 4.6 g/dL (2.2-4.0); Glomerular Filtration Rate >60 (60-); Glucose, Blood 142 mg/dL (70-99); Iron Serum 68 ug/dL (65-175); Sodium, Blood 140 mmol/L (136-145); Total Iron Binding Capacity 170 ug/dL (250-450); Total Protein, Blood 7.3 g/dL (6.4-8.2)
[2021-07-04 04:38] LABS: Ferritin, Serum 3872 ng/mL (26-388)
--- NOTE | 2021-07-04 05:58 | NUR ---
PT FEELING ANXIOUS, ATIVAN 0.5MG GIVEN PER MAR, PRECEDEX INCREASED FROM 0.2 TO 0.3 MCG/KG. MASK READJUSTED FOR LESS LEAK, PT TOLERATED WELL.
--- NOTE | 2021-07-04 06:21 | NUR ---
END OF SHIFT SUMMARY PT REMAINED DEPENDENT ON BIPAP 16/10; FIO2 100% T/O NIGHT. PT IS BECOMING VERY FATIGUED AND LETHARGIC. RESP RATE 20-30'S. BECOMES VERY ANXIOUS AT TIMES AND RESTLESS; PULLING AT BIPAP TUBING. THEREFORE, PRECEDEX STARTED AT 0.2MCG/KG/HR AND RECENTLY INCREASED TO 0.3MCG/KG/HR. PT WAS BRADYCARDIC PRIOR TO STARTING PRECEDEX AND AT TIMES DROPS TO THE HIGH 30'S; HOWEVER, BP'S REMAIN STABLE AND PT REMAINS ASYMPTOMATIC. POWERGLIDE PLACED TO RIGHT UPPER ARM, WHICH IS SALINE LOCKED AT THIS TIME. 20G TO LEFT UPPER ARM. EDGE CATHETER IS PATENT AND DRAINING DARK, RICHARD COLORED URINE TO GRAVITY. CALL LIGHT IS WITHIN REACH AND PT IS ABLE TO MAKE HIS NEEDS KNOWN. WILL CONTINUE TO MONITOR UNTIL REPORT IS HANDED OFF TO ONCOMING RN.
--- NOTE | 2021-07-04 08:50 | NUR ---
CARE ASSUMED AT 070. PT SLEEPING ON BIPAP 16/, FIO2 100%. SATS 93%. PT'S RATE 20'S. PT RELAXED ON PRECEDEX GTT 0.3MCG. PT W BRADYCARDIA IN 40'S, MILD HYPOTENSION W MAPS >65. WILL HOLD BP MEDS THIS AM. PT ABLE TO THIAGO SMALL SIPS OF WATER, SATS DROP TO 85% WHILE BRIEFLY OFF MASK PER RN HELPING, PT RECOVERED FAST ONCE BIPAP REPLACED. LUNGS SOUND CLEAR BUT DIMINISHED, ALMOST ABSENT TO BASES. 300CC DARK RICHARD URINE TO EDGE BAG.
--- NOTE | 2021-07-04 10:20 | NUR ---
PT'S S/O VIJI UPDATED W PT'S PERMISSION
--- NOTE | 2021-07-04 11:34 | NUR ---
PT ASSISTED FROM PRONE TO RIGHT SIDE. PT C/O HIP PAIN 04/16, DECLINES TYLENOL. PT ASSITED W SIPS OF WATER.
--- NOTE | 2021-07-04 18:01 | NUR ---
PT SLEPT THROUGH MOST OF SHIFT. PRECEDEX HAS BEEN OFF FOR MOST OF SHIFT. HEART RATE NOW IN 60'S, BP STABLE. PT ONLY ABLE TO TAKE SMALL SIPS OF WATER BEFORE SATS DROP INTO 80'S. FIO2 IS NOW AT 90% FROM 100%. SATS 95%. CLINIMIX STARTED PT IS NOT TAKING ENOUGH IN PO. FLEXISEAL PLACED FOR VERY LARGE LIQUID STOOL THAT PT WAS INCONTIN. OFF.
--- NOTE | 2021-07-04 19:55 | NUR ---
ASSUMED PT CARE AT 1900 FROM LEYDA CARDOZA PT IS ALERT AND ORIENTED X4; ABLE TO MAKE HIS NEEDS KNOWN. UTILIZES CALL LIGHT APPROPRIATELY. PT REMAINS DEPENDENT ON BIPAP PRESSURES 16/10; FIO2 90%. TOLERATES VERY SHORT BREAKS FROM BIPAP FOR SIPS OF WATER. OXYGEN SATURATIONS DROP TO THE MID 70'S, BUT PT RECOVERS QUICKLY ONCE PLACED BACK ON THE BIPAP. PT C/O BEING HUNGRY. CLINIMIX INFUSING AT 75MLS/HR VIA POWERGLIDE TO RIGHT UPPER ARM. OFFERED NUTRITIONAL SHAKE IN WHICH PT DECLINED. ATTEMPTED TO PLACE PT ON 15L HI FLOW NC FOR A LONGER BREAK ON BIPAP. PT TOLERATED FOR A COUPLE MINUTES UNTIL HE BECAME ANXIOUS AND STATED HE WANTED TO GO BACK ON THE BIPAP. PT REQUIRES POSITIVE TALK AND ENCOURAGEMENT TO ASSIST IN DECREASING HIS ANXIETY. PT VOICED THAT HE MISSES HIS FAMILY AND JUST WANTS TO SEE THEM. EMPATHIZED WITH PT IN REGARDS TO HIS FEELINGS OF ISOLATION. PT HAS PRECEDEX ON STANDBY, BUT STILL ABLE TO UTILIZE IF HE BECOMES INCREASINGLY ANXIOUS; HOWEVER, HE APPEARS TO HAVE SELF SOOTHED AND IS CURRENTLY CALM AND APPEARS COMFORTABLE AT THIS TIME. EDGE CATHETER IS PATENT AND DRAINING YELLOW URINE TO GRAVITY. RECTAL TUBE IN PLACE WITH NO OUTPUT AT THIS TIME. HR 70-80'S IN SINUS RHYTHM. BP'S STABLE; HOWEVER, SCHEDULED MEDICATIONS HELD D/T BP'S LABILE T/O LAST NIGHT, WELL IF THE NEED ARISES TO UTILIZES PRECEDEX. PRODUCT SUPPORT ENGINEER TO START ANOTHER POWERGLIDE TO LEFT UPPER ARM. SEE SHIFT SUMMARY FOR FURTHER DETAILS.
[2021-07-05 03:59] LABS: BASOPHILS ABSOLUTE AUTO 0.02 K/mm3 (0.00-0.23); BASOPHILS PERCENT AUTO 0 % (0-2); EOSINOPHILS ABSOLUTE AUTO 0.01 K/mm3 (0.00-0.68); EOSINOPHILS PERCENT AUTO 0 % (0-6); Hematocrit 41.2 % (37.0-53.0); Hemoglobin 13.3 g/dL (13.5-17.5); IMMATURE GRAN ABSOLUTE AUTO 0.08 K/mm3 (0.00-0.10); IMMATURE GRAN PERCENT AUTO 1 % (0-1); LYMPHOCYTES PERCENT AUTO 10 % (21-46); MONOCYTES ABSOLUTE AUTO 0.58 K/mm3 (0.16-1.47); MONOCYTES PERCENT AUTO 6 % (4-13); Mean Corpuscular HGB 26.5 pg (26.0-34.0); Mean Corpuscular HGB Conc 32.3 g/dL (31.5-36.5); Mean Corpuscular Volume 82 fL (80-100); Mean Platelet Volume 9.5 fL (9.1-12.4); NEUTROPHILS ABSOLUTE AUTO 8.19 K/mm3 (1.96-9.15); NEUTROPHILS PERCENT AUTO 83 % (41-73); Platelet Count 332 K/mm3 (150-400); RDW Coefficient Variation 13.7 % (11.7-14.2); RDW Standard Deviation 40.9 fL (35.1-46.3); Red Blood Cell Count 5.01 M/mm3 (4.30-5.90); White Blood Cell Count 9.88 K/mm3 (4.00-11.30)
[2021-07-05 04:18] LABS: Anion Gap 4 mmol/L (6-16); Blood Urea Nitrogen 32 mg/dL (8-24); Bun/Creatinine Ratio 28.3 (12.0-20.0); CO2, Blood 29 mmol/L (21-32); Calcium, Blood 8.6 mg/dL (8.5-10.1); Chloride, Blood 107 mmol/L (98-108); Creatinine, Blood 1.13 mg/dL (0.60-1.20); Glomerular Filtration Rate >60 (60-); Glucose, Blood 133 mg/dL (70-99); Magnesium, Blood 2.3 mg/dL (1.6-2.4); Phosphorus, Blood 3.1 mg/dL (2.5-4.9); Potassium, Blood 3.7 mmol/L (3.5-5.5); Sodium, Blood 140 mmol/L (136-145)
--- NOTE | 2021-07-05 04:31 | NUR ---
END OF SHIFT SUMMARY PT REMAINS DEPENDENT ON BIPAP; SETTINGS 16/10; FIO2 FLUCTUATES ANYWHERE FROM 70-100% DEPENDENT ON POSITION. PT REMAINS ALERT AND ORIENTED X4 AND ABLE TO MAKE NEEDS KNOWN. PT VERBALIZED HIS FEAR OF BEING ALONE AND HIS OVERALL ANXIETY REGARDING THE PROGRESSION OF HIS ILLNESS. REASSURED PT THAT THE NURSES STATION IS RIGHT OUTSIDE HIS ROOM AND HE IS BEING MONITORED CONTINUOUSLY ON THE FILBERT GROWER. PT DEMONSTRATED UNDERSTANDING AND VERBALIZED HIS TRUST WITH THE NURSING STAFF. PT HAS BEEN COMPLIANT WITH HARD TURNS IN ORDER TO IMPROVE OXYGENATION; HOWEVER, DECLINED PRONING THIS SHIFT. PT WAS ABLE TO TOLERATE BREAKS FROM BIPAP FOR SIPS OF WATER, WELL BITES OF PUDDING. PT WAS ABLE TO TOLERATE LONGER BREAKS THAN USUAL ON 15L OF HI FLOW NC; HOWEVER, OVERALL BREAKS WERE STILL SHORT LIVED AND HE REQUIRED BIPAP TO RECOVER HIS SATURATIONS. PT CONTINUES TO REQUIRE ENCOURAGEMENT AND POSITIVE REINFORCEMENT TO HELP WITH HIS ANXIETY, WELL TO ASSIST WITH HIS OVERALL MOTIVATION TO OVERCOME HIS FATIGUE. CLINIMIX REMAINS INFUSING AT 75ML/HR VIA POWERGLIDE TO JUN. CALL LIGHT IS WITHIN REACH AND PT IS ABLE TO MAKE HIS NEEDS KNOWN. WILL CONTINUE TO MONITOR UNTIL REPORT IS HANDED OFF TO ONCOMING RN.
--- NOTE | 2021-07-05 09:16 | NUR ---
ASSUMED CARE/ASSESSMENT ASSESSMENT COMPLETED FOR PRIMARY LEYDA CARDOZA. PT SLEEPING AT INITIAL ASSESSMENT BUT WAKES TO VOICE, FOLLOWS COMMANDS AND IS A&O X 4, CURRENTLY UTILIZING BIPAP AT 16/10, FIO2 65% AND BUR 14. LUNG SOUNDS DIM T/O WITH OCCASIONAL DISTAND WHEEZE TO LLL. RRL MID 20S-30S. DENIES PAIN, ENCOURAGED PRONING, AND UP TO CHAIR LATER TODAY. NS TKO, CLINIMIX AT 75ML/HR. F/C TO GRAVITY, WITH GOOD UOP SO FAR OF YELLOW URINE. PLANT TO TRANSFER TO PCU TODAY. PRIMARY RN NANI UPDATED WITH ASSESSMENT FINDINGS.
--- NOTE | 2021-07-05 19:24 | NUR ---
END OF SHIFT SUMMARY: PATIENT ALERT AND ORIENTED THROUGHOUT THE SHIFT. PATIENT REPORTS SHORTNESS OF BREATH, ESPECIALLY WITH MOVEMENT AND AFTER TALKING FOR AN EXTENDED PERIOD OF TIME. PATIENT ARRIVED TO THE UNIT THIS MORNING WITH THE GOAL OF TRANSITIONING DURING THE DAY TO AIRVO. PATIENT TRANSITIONED TO AIRVO LATE THIS MORNING. PATIENT TOLERATED WELL WITH 50L AT 63%. SPO2 STAYED BETWEEN 88-94%. IN THE EARLY EVENING, PATIENT REQUESTED TO BE PUT BACK ON BIPAP. THIS WAS FOLLOWING EATING SOME FULL LIQUID DIET, HAVING A LONG CONVERSATION WITH A FRIEND AND GETTING UP TO THE BSC. PATIENT ABLE TO RECOVER ON BIPAP AND REPORTED FEELING MUCH BETTER BY THE END OF SHIFT. PATIENT NEEDED ENCOURAGEMENT TO LAY ON HIS SIDE. PATIENT DECLINED TO PRONE. PATIENT DID INDEPENDENTLY TRANSFER FROM SIDE TO SIDE AFTER DISCUSSION WITH RN.
--- NOTE | 2021-07-05 22:12 | NUR ---
ASSUMED CARE OF PATIENT AT APPROXIMATELY 1900 FROM JENNIFER Rutherford RN. PATIENT ALERT AND ORIENTED X4; ONE ASSIST TO BEDSIDE COMMODE. PATIENT DENIES PAIN, NUMBNESS, TINGLING, DIZZINESS OR NAUSEA. NSR ON TELE; OXYGEN SATURATION ABOVE 90% ON BIPAP; 14/10 65%; R/R 24-40; INCREASES WITH ACTIVITY. PG INFUSING CLINIMIX; PATIENT DID NOT EAT ANY OF HIS DINNER; TAKES SIPS OF WATER AT TIMES; Q4 ORAL CARE; NEEDS ASSISTANCE TURNING IN BED; ATTEMPTED TO SWITCH TO AIRVO FOR PM MEDS AND DROPPED TO HIGH 70'S. URINARY CATHETER DRAINING RICHARD COLORED URINE; DIARRHEA WHEN UP TO BEDSIDE COMMODE; ATTENDS IN PLACE.
[2021-07-06 04:49] LABS: BASOPHILS ABSOLUTE AUTO 0.02 K/mm3 (0.00-0.23); BASOPHILS PERCENT AUTO 0 % (0-2); EOSINOPHILS PERCENT AUTO 0 % (0-6); Hematocrit 39.5 % (37.0-53.0); IMMATURE GRAN PERCENT AUTO 1 % (0-1); LYMPHOCYTES ABSOLUTE AUTO 0.76 K/mm3 (0.84-5.20); LYMPHOCYTES PERCENT AUTO 6 % (21-46); MONOCYTES ABSOLUTE AUTO 0.66 K/mm3 (0.16-1.47); MONOCYTES PERCENT AUTO 5 % (4-13); Mean Corpuscular HGB Conc 32.9 g/dL (31.5-36.5); Mean Corpuscular Volume 82 fL (80-100); Mean Platelet Volume 10.1 fL (9.1-12.4); NEUTROPHILS ABSOLUTE AUTO 11.94 K/mm3 (1.96-9.15); NEUTROPHILS PERCENT AUTO 89 % (41-73); Platelet Count 313 K/mm3 (150-400); RDW Coefficient Variation 13.8 % (11.7-14.2); RDW Standard Deviation 40.5 fL (35.1-46.3); Red Blood Cell Count 4.82 M/mm3 (4.30-5.90); White Blood Cell Count 13.48 K/mm3 (4.00-11.30)
[2021-07-06 05:19] LABS: Anion Gap 6 mmol/L (6-16); Blood Urea Nitrogen 24 mg/dL (8-24); CO2, Blood 26 mmol/L (21-32); Calcium, Blood 8.2 mg/dL (8.5-10.1); Chloride, Blood 107 mmol/L (98-108); Glomerular Filtration Rate >60 (60-); Glucose, Blood 118 mg/dL (70-99); Phosphorus, Blood 2.8 mg/dL (2.5-4.9); Potassium, Blood 4.5 mmol/L (3.5-5.5); Sodium, Blood 139 mmol/L (136-145)
--- NOTE | 2021-07-06 06:43 | NUR ---
PATIENT SLEPT ABOUT EIGHT HOURS LAST NIGHT. VSS. NO ACUTE CHANGES.
--- NOTE | 2021-07-06 18:01 | NUR ---
SHIFT SUMMARY PT ALERT AND ORIENTED. PT WAS ON BIPAP AT 14/10 AND 70% FIO2 MOST OF SHIFT. THIS EVENING PT DESATURATED TO LOW 80'S AND FIO2 WAS INCREASED TO 85% TO MAINTAIN SATURATION OF 90%. HR NSR. BP STABLE. PT DENIES ANY PAIN. PT REPOSITIONED Q2H WITH MINIMAL ASSISTANCE AND LAYED ON HIS SIDE MOST OF SHIFT. CLINIMIX INFUSING PER ORDERS. ORAL CARE PROVIDED Q4H AND MORE OFTEN PT REQUESTED. WILL CONTINUE TO MONITOR AND REPORT TO ONCOMING RN.
--- NOTE | 2021-07-06 19:30 | NUR ---
PT IS ALERT AND ORIENTED X3. PT ON BIPAP % - SATS WNL. PT DENIES ANY COMPLAINTS OF HEADACHE, CHEST PAIN, NAUSEA, N/T, OR PAIN. PT REPORTS SOB WITH ANY ACTIVITY. EDGE DRAINING TEA COLORED URINE. CALL LIGHT WITHIN REACH. BED IN LOW POSITION. NO REQUESTS AT THIS TIME.
[2021-07-07 05:09] LABS: BASOPHILS ABSOLUTE AUTO 0.03 K/mm3 (0.00-0.23); BASOPHILS PERCENT AUTO 0 % (0-2); Hematocrit 40.9 % (37.0-53.0); Hemoglobin 13.2 g/dL (13.5-17.5); LYMPHOCYTES ABSOLUTE AUTO 0.78 K/mm3 (0.84-5.20); LYMPHOCYTES PERCENT AUTO 5 % (21-46); MONOCYTES ABSOLUTE AUTO 0.52 K/mm3 (0.16-1.47); MONOCYTES PERCENT AUTO 3 % (4-13); Mean Corpuscular HGB 26.7 pg (26.0-34.0); Mean Corpuscular HGB Conc 32.3 g/dL (31.5-36.5); Mean Corpuscular Volume 83 fL (80-100); Mean Platelet Volume 9.5 fL (9.1-12.4); Platelet Count 316 K/mm3 (150-400); RDW Coefficient Variation 13.6 % (11.7-14.2); RDW Standard Deviation 40.9 fL (35.1-46.3); Red Blood Cell Count 4.94 M/mm3 (4.30-5.90); White Blood Cell Count 15.12 K/mm3 (4.00-11.30)
[2021-07-07 05:31] LABS: Anion Gap 6 mmol/L (6-16); Blood Urea Nitrogen 25 mg/dL (8-24); Bun/Creatinine Ratio 21.7 (12.0-20.0); CO2, Blood 26 mmol/L (21-32); Calcium, Blood 9.1 mg/dL (8.5-10.1); Chloride, Blood 107 mmol/L (98-108); Creatinine, Blood 1.15 mg/dL (0.60-1.20); Glomerular Filtration Rate >60 (60-); Glucose, Blood 131 mg/dL (70-99); Potassium, Blood 3.8 mmol/L (3.5-5.5); Sodium, Blood 139 mmol/L (136-145)
[2021-07-07 05:43] LABS: EOSINOPHILS ABSOLUTE AUTO 0.01 K/mm3 (0.00-0.68); EOSINOPHILS PERCENT AUTO 0 % (0-6); IMMATURE GRAN ABSOLUTE AUTO 0.16 K/mm3 (0.00-0.10); IMMATURE GRAN PERCENT AUTO 1 % (0-1); NEUTROPHILS ABSOLUTE AUTO 13.62 K/mm3 (1.96-9.15); NEUTROPHILS PERCENT AUTO 90 % (41-73)
--- NOTE | 2021-07-07 06:15 | NUR ---
SHIFT SUMMARY - PT HAS SLEPT THROUGHOUT MOST OF THE NIGHT. BIPAP SETTING /85%. PT HAS TOLERATED PO FLUIDS IN HIGH FOWLERS POSITION, AND THEN PT READJUSTED TO SUPINE POSITION. PT HAS BEEN ABLE TO TURN HIMSELF IN BED. SATS WNL THROUGHOUT THE NIGHT, SPORATIC DESAT WHEN PT REPOSITIONED SELF IN BED, BUT SATS RETURNED TO 90% OR GREATER WITHIN 1 MINUTE OR LESS. FLUIDS AT BEDSIDE. CALL LIGHT WITHIN REACH. BED IN LOW POSITION.
--- NOTE | 2021-07-07 18:53 | NUR ---
SHIFT SUMMARY PT ALERT AND ORIENTED. PT HAS BEEN ON BIPAP AT 14/10 AND FIO2 HAS BEEN TITRATED UP TO 90% THIS AFTERNOON TO KEEP SATURATION ABOVE 90%. LS DIM T/0. DR. KAISER NOTIFIED ABOUT CHANGES. BP STABLE. HR NSR, BUT TELEMETRY DC'ED THIS AFTERNOON. PT DENIES ANY PAIN. PT HAD LIQUID BM THIS SHIFT. EDGE PATENT AND DRAINING. PT ENCOURAGED TO PRONE, BUT STATES HE CANNOT TOLERATE IT. PT PLACED ALL THE WAY ONTO HIS SIDE MULTIPLE TIMES THIS SHIFT TO KEEP SATS ABOVE 90%. WILL CONTINUE TO MONITOR AND REPORT TO ONCOMING RN.
--- NOTE | 2021-07-08 03:36 | NUR ---
DERRICK HAS BEEN STRUGGLING A BIT THIS SHIFT, HE IS DEPRESSED, "DOESN'T FEEL GOOD", IS HAVING LIQUID STOOLS, AND IS WITHDRAWN. HE HAS BEEN VERY ANXIOUS A COUPLE OF TIMES AND NEEDED MEDICATED, HAD TO CALL FOR ADDITIONAL MED ORDERS THE ATIVAN WAS Q8 AND JUST A 0.5MG. HE IS ON BIPAP 14/10 85%, HIS RESP RATE IS 30-40, HIS LEG JUST BEGINS SHAKING AND MOVING BACK AND FORTH HE WORKS TO GET HIS BREATH. HE HAS CLINIMIX INFUSING TO PG-JUN. PANCHO PG FLUSHES WELL, USED FOR ATIVAN. EDGE TO GRAVITY DRAINAGE WITH DARK YELLOW RETURN, OCC COUGH, DRY, NON PRODUCTIVE. I WAS ABLE TO GIVE HIM SOME VANILLA PUDDING, HE ALMOST ATE ALL OF IT. HE IS TAKING WATER WHENEVER HE GETS THE CHANCE. LOW GRADE TEMP OF 99.2. WILL CONTINUE TO WATCH AND ASSESS HIS OXYGENATION LEVELS AND WORK OF BREATHING.
[2021-07-08 05:27] LABS: Magnesium, Blood 1.9 mg/dL (1.6-2.4)
[2021-07-08 05:29] LABS: Anion Gap 7 mmol/L (6-16); Blood Urea Nitrogen 26 mg/dL (8-24); Bun/Creatinine Ratio 26.4 (12.0-20.0); CO2, Blood 24 mmol/L (21-32); Chloride, Blood 111 mmol/L (98-108); Creatinine, Blood 0.98 mg/dL (0.60-1.20); Glomerular Filtration Rate >60 (60-); Glucose, Blood 153 mg/dL (70-99); Phosphorus, Blood 2.7 mg/dL (2.5-4.9); Potassium, Blood 3.4 mmol/L (3.5-5.5); Sodium, Blood 142 mmol/L (136-145)
--- NOTE | 2021-07-08 05:59 | NUR ---
DERRICK HAS BEEN ON BIPAP 20/08 85% T/O THE NIGHT. HIS SATS RANGE FROM 88-92%. HE GETS INCREDIBLLY ANXIOUS WHEN TURNED TO HIS SIDE OR LYING FLAT. HE WAS MEDICATED X 2 THIS SHIFT. HIS LUNGS ARE DIMINISHED T/O. HE IS WITHDRAWN AND SAYS HE "DOESN'T FEEL GOOD". HE TOLERATED WATER AND VANILLA PUDDING. HE THINKS HE IS NOT GETTING ENOUGH WATER. HE IS HAVING LIQUID STOOLS, WHICH HE HAD 2X THIS SHIFT, USES THE BEDPAN. KELY WITH RICHARD RETURN. HIS I/O WAS +[phone]. HIS LABS THIS AM WITH HIS CA+ 7.0, HIS K+ 3.4. HIS TEMP WAS 99.2 TO START THE SHIFT AND WENT DOWN TO 98.5. NO FURTHER CHANGES.
--- NOTE | 2021-07-08 10:14 | NUR ---
AM NOTE PT ALERT AND ORIENTED X 4. PATIENT IS ON BIPAP 16/12. 85% FIO2 AND SATURATIONS ARE 90-92%. PT WILL DESATURATE TO 88% W/ EXERTION. SBP THIS AM WAS 158. THIS NURSE MEDICATED PER EMAR. UPON REASSESSMENT SBP NOW 115. PATIENT HAS POWERGLIDES IN BOTH UPPER EXTREMETIES. JUN POWERGLIDE IS INFUSING CLINIMIX PER ORDER. LEFT UPPER POWERGLIDE IS SALINE LOCKED. PATIENT HAS A EDGE CATHETER THAT IS DRAINING DARK YELLOW URINE. PATIENT IS NOW IN VILCHIS POSITION AND SPO2 IS 93%. CALL LIGHT IN REACH, BED ALARM ON.
--- NOTE | 2021-07-08 18:05 | NUR ---
SHIFT SUMMARY PATIENT REMAINED ALERT AND ORIENTED X 4 THROUGHOUT SHIFT. DURING SHIFT CHANGE THIS AM, MARTHA RN REPORTED PATIENT APPEARED ANXIOUS AND WAS MEDICATED PER EMAR. TODAY, PATIENT DID NOT APPEAR ANXIOUS AND WAS CALM/COOPERATIVE WITH CARE. SPO2 RANGED FROM 88-95% VIA BIPAP 12/9, 85% FIO2 AND DESATURATES W/ EXERTION. SBP RANGED FROM 158-102. PT REPORTED THAT HE CANNOT TOLERATE PRONING; PATIENT WAS ENCOURAGED TO CONTINUE LAYING ON SIDE AND WAS TURNED Q2. CLINIMIX IS RUNNING PER ORDER ON R POWERLGIDE. L POWERGLIDE IS INFUSING POTASSIUM PHOSPHATE PER ORDERS. EDGE CATHETER IS IN PLACE AND DRAINING W/ GRAVITY. THE PATIENT WAS ABLE TO HAVE A ZOOM/VIDEO CALL W/ FAMILY AT 1430. NO OTHER ACUTE CHANGES NOTED. CALL LIGHT IN REACH, WILL CONTINUE TO MONITOR.
[2021-07-09 05:50] LABS: Alanine Aminotransfer (ALT/SGP 63 U/L (12-78); Albumin/Globulin Ratio 0.4 (0.8-1.8); Alk Phos 69 U/L (50-136); Anion Gap 8 mmol/L (6-16); Aspartate Aminotrans (AST/SGOT 41 U/L (12-37); Bilirubin, Total 0.5 mg/dL (0.1-1.0); Blood Urea Nitrogen 30 mg/dL (8-24); Bun/Creatinine Ratio 32.9 (12.0-20.0); CO2, Blood 25 mmol/L (21-32); Calcium, Blood 8.8 mg/dL (8.5-10.1); Chloride, Blood 105 mmol/L (98-108); Creatinine, Blood 0.91 mg/dL (0.60-1.20); Globulin, Blood 5.1 g/dL (2.2-4.0); Glomerular Filtration Rate >60 (60-); Glucose, Blood 161 mg/dL (70-99); Potassium, Blood 4.4 mmol/L (3.5-5.5); Sodium, Blood 138 mmol/L (136-145); Total Protein, Blood 7.1 g/dL (6.4-8.2)
[2021-07-09 05:52] LABS: BASOPHILS ABSOLUTE AUTO 0.03 K/mm3 (0.00-0.23); BASOPHILS PERCENT AUTO 0 % (0-2); EOSINOPHILS PERCENT AUTO 0 % (0-6); Hematocrit 38.3 % (37.0-53.0); Hemoglobin 12.2 g/dL (13.5-17.5); IMMATURE GRAN ABSOLUTE AUTO 0.35 K/mm3 (0.00-0.10); IMMATURE GRAN PERCENT AUTO 2 % (0-1); LYMPHOCYTES ABSOLUTE AUTO 0.79 K/mm3 (0.84-5.20); LYMPHOCYTES PERCENT AUTO 5 % (21-46); MONOCYTES ABSOLUTE AUTO 0.87 K/mm3 (0.16-1.47); MONOCYTES PERCENT AUTO 5 % (4-13); Mean Corpuscular HGB 26.2 pg (26.0-34.0); Mean Corpuscular HGB Conc 31.9 g/dL (31.5-36.5); Mean Corpuscular Volume 82 fL (80-100); Mean Platelet Volume 10.3 fL (9.1-12.4); NEUTROPHILS ABSOLUTE AUTO 15.51 K/mm3 (1.96-9.15); NEUTROPHILS PERCENT AUTO 88 % (41-73); Platelet Count 335 K/mm3 (150-400); RDW Coefficient Variation 14.1 % (11.7-14.2); RDW Standard Deviation 42.5 fL (35.1-46.3); Red Blood Cell Count 4.65 M/mm3 (4.30-5.90); White Blood Cell Count 17.55 K/mm3 (4.00-11.30)
--- NOTE | 2021-07-09 05:58 | NUR ---
DERRICK STARTED THE SHIFT ON BIPAP 10/15 85% AND IS NOW FLOWING AT 100%. HIS SATS ARE BETTER WITH A LARGE REPOSITION BY THE NATIONAL GUARD CREW. HE IS MAINTAINING AROUND 90% SATS NOW EVEN WHILE RESTING. HE IS EXPERIENCING THE FEELING OF THE [place] CLOSING IN ON HIM AND ALSO STATED THAT HE FEELS THAT THERE ARE THINGS COMING OUT OF THE [place], HE ASKED FOR THE CURTAIN TO BE OPENED, THEN LATER ASKED FOR IT TO BE CLOSED BECAUSE HE WAS SEEING THINGS. HE WAS GIVEN ONE DOSE OF ATIVAN AROUND MIDNIGHT PER HIS REQUEST, AND HAS RECENTLY ASKED FOR ANOTHER. HIS URINE OUTPUT WAS FAIR WITH RICHARD RETURN, HE IS TAKING IN WATER WHEN ABLE. IV CLINIMIX CONTINUES IN THE PANCHO PG. NEITHER PG IS DRAWING BLOOD AT THIS TIME. PT ENCOURAGED TO KEEP GOING, KEEP FIGHTING FOR HIS HEALTH.
--- NOTE | 2021-07-09 19:24 | NUR ---
PT SUMMARY: PT PRONED LATER THIS AFTERNOON TODAY SATTING ABOVE 95% PT TITRATED DOWN TO 80% FIO2 BIPAP 10/16 SATS NOW RANGING 90-92%. VITALS HRR SR/ST 80-100'S, BP SYSTOLIC 120-150'S, AFEBRILE. PT STILL GETS ANXIOUS WAS GIVEN ATIVAN X2 FOR THE SHIFT ORDER CHANGED TO Q4HRS. PT REMAINED ALERT AND ORIENTED AT BASELINE NO HALLUCINATION EPISODES WAS ABLE TO DO ZOOM CALL WITH FAMILY FOR 15 MINS. PT STARTED ON VANCO AND CEFEPIME IV FOR ANTIBIOTICS. CLINIMIX GTT AND LIPIDS RUNNING PICC LINE INSERTED ON PANCHO WITH GOOD BLOOD RETURN. NO OTHER ISSUES ENCOUNTERED WILL REPORT TO ONCOMING SHIFT
--- NOTE | 2021-07-10 06:23 | NUR ---
PROGRESS NOTE PT. GOT ANXIOUS THROUGHOUT THE NIGHT, WAS GIVEN I.V. ATIVAN WHEN NEEDED. TRIED TO PRONE TO MAINTAIN O2 STATS ABOVE 90'S. STARTED SHIFT ON BIPAP SETTINGS AT 12/10 AND FIO2 AT 80%. AROUND 2:30AM PT. BECAME ANXIOUS AND 02 STARTED TO DECREASE AND BIPAP SETTINGS WERE CHANGED TO FIO2 TO 100% AND NOW ON FIO2 AT 90%. MD NOTIFIED AT 03:07AM 07/10/21; PT. BECAME ANXIOUS AND STATED, "IS THIS EVEN WORTH IT." MD AWARE AND GAVE VERBAL ORDERS FOR A ONE TIME DOSE ATIVAN. PT. STABLE AT BEDSIDE AND COMFERTABLE AFTER ATIVAN DOSE AND BEING REPOSITIONED.
--- NOTE | 2021-07-10 06:52 | NUR ---
DERRICK IS FRUSTRATED, AGITATED, AFRAID. HE IS ASKING, "WHAT ARE WE DOING HERE?" " I AM READY TO LEAVE, THIS ISN'T WORKING". PT TOLD THAT HE MUST GET OFF HIS BACK TO GET BETTER, HE CONTINUES TO STATE HE IS CLAUSTROPHOBIC AND IT IS MAKING HIM CRAZY. HE HAS A "CARE LESS" ATTITUDE, TOLD THAT IF HE DOESN'T GET BETTER THE NEXT STEP IS A TUBE IN HIS THROAT AND BEING SEDATED AND PARALYZED. HE JUST SHAKES HIS HEAD. ASKED TO TURN TO HIS RIGHT SIDE TO GIVE HIMSELF A BREAK FROM LEFT AND PRONE AND HE REFUSED. HE CONTINUES TO GRAB AT HIS MASK AND PUT A FINGER IN IT CAUSING A LEAK, TOLD THIS WASN'T HELPING AND HE SAID,"IT'S FRESH AIR".
[2021-07-10 08:08] LABS: BASOPHILS ABSOLUTE AUTO 0.04 K/mm3 (0.00-0.23); BASOPHILS PERCENT AUTO 0 % (0-2); EOSINOPHILS ABSOLUTE AUTO 0.01 K/mm3 (0.00-0.68); EOSINOPHILS PERCENT AUTO 0 % (0-6); Hematocrit 37.3 % (37.0-53.0); Hemoglobin 12.3 g/dL (13.5-17.5); IMMATURE GRAN PERCENT AUTO 2 % (0-1); LYMPHOCYTES ABSOLUTE AUTO 0.74 K/mm3 (0.84-5.20); LYMPHOCYTES PERCENT AUTO 4 % (21-46); MONOCYTES ABSOLUTE AUTO 0.69 K/mm3 (0.16-1.47); MONOCYTES PERCENT AUTO 4 % (4-13); Mean Corpuscular HGB 26.9 pg (26.0-34.0); Mean Corpuscular Volume 82 fL (80-100); Mean Platelet Volume 10.1 fL (9.1-12.4); NEUTROPHILS ABSOLUTE AUTO 17.08 K/mm3 (1.96-9.15); NEUTROPHILS PERCENT AUTO 91 % (41-73); Platelet Count 281 K/mm3 (150-400); RDW Coefficient Variation 14.1 % (11.7-14.2); RDW Standard Deviation 41.8 fL (35.1-46.3); Red Blood Cell Count 4.57 M/mm3 (4.30-5.90); White Blood Cell Count 18.86 K/mm3 (4.00-11.30)
[2021-07-10 08:15] LABS: Base Excess Venous -0.9 mmol/L; Bicarbonate Venous 24.4 mmol/L (24.0-30.0); PCO2 Venous 31.1 mmHg (38-42); PO2 Venous 87.7 mmHg (38-42); pH Blood Venous 7.47 (7.34-7.37)
[2021-07-10 08:26] LABS: Alanine Aminotransfer (ALT/SGP 77 U/L (12-78); Albumin/Globulin Ratio 0.4 (0.8-1.8); Alk Phos 86 U/L (50-136); Anion Gap 9 mmol/L (6-16); Aspartate Aminotrans (AST/SGOT 54 U/L (12-37); Bilirubin, Total 0.5 mg/dL (0.1-1.0); Blood Urea Nitrogen 27 mg/dL (8-24); Bun/Creatinine Ratio 31.9 (12.0-20.0); CO2, Blood 24 mmol/L (21-32); Calcium, Blood 8.7 mg/dL (8.5-10.1); Chloride, Blood 107 mmol/L (98-108); Creatinine, Blood 0.85 mg/dL (0.60-1.20); Globulin, Blood 4.8 g/dL (2.2-4.0); Glomerular Filtration Rate >60 (60-); Glucose, Blood 131 mg/dL (70-99); Magnesium, Blood 2.2 mg/dL (1.6-2.4); Phosphorus, Blood 3.1 mg/dL (2.5-4.9); Potassium, Blood 4.4 mmol/L (3.5-5.5); Sodium, Blood 140 mmol/L (136-145); Total Protein, Blood 6.8 g/dL (6.4-8.2); Triglycerides 276 mg/dL (30-160); Vancomycin, Trough 14.3 ug/mL (5.0-10.0)
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
--- NOTE | 2021-07-10 19:23 | NUR ---
Review of pt with nursing. they relay despondent and depressed will continue to seek ways to increase drive to live will send chaplians and increase family calls.
--- NOTE | 2021-07-10 19:36 | NUR ---
this evening Al got up to the bedside commode for a liquid BM. He was very weak. Afterwards sat up in chair for about 1.5 hours. RT attempted to see if he could tolerate the AirVo, but he did not hold his oxygen saturation well enough and was put back on to the bipap. He requested a vanilla pudding, which he ate, one bite at a time, with occasional breaks from the bipap. Stated this evening that he felt like he had done a good job today. I affirmed his sentiment, stated that he had proned today, gotten up to the chair, and worked on mobility in bed. He facetimed with his , grandson and son this evening as well. This evening his spirits seem to be improved from this morning.
--- NOTE | 2021-07-11 00:58 | NUR ---
DERRICK COMPLAINED OF BEING HUNGRY, SAT HIM UP ON THE EDGE OF THE BED, MADE SURE HE WAS HAVING GOOD SATS -94%, PUT HIM ON AIRVO 80% 50L, HE PANICKED, CONTINUED TO SAY, "I DON'T LIKE THAT THING, I DON'T LIKE THAT THING". ENCOURAGED HIM TO BREATHE SLOWLY AND THROUGH HIS NOSE. HE ONLY TOLERATED A BITE OR TWO OF HIS PUDDING AND THEN THE BIPAP WAS PUT BACK ON. HIS COUGH CONTINUES, DRY, NON PRODUCTIVE, EDGE WITH GOOD OUTPUT, LIQUID BM THAT HE SAYS, "SHIT MYSELF ALL NIGHT LONG", FIRST BM TONIGHT. PT STRONGLY ENCOURAGED TO LAY ON HIS SIDE, ATIVAN GIVEN PER JAN AND PT LYING COMFORTABLY ON HIS RIGHT SIDE. SATS 97%. HE CONTINUES TO PUT HIS FINGER IN HIS MASK AND GET "AIR" IN BECAUSE HE FEELS LIKE HE IS IN NEED OF "FRESH AIR". SATS CURRENTLY 98% ON HIS RIGHT SIDE.
--- NOTE | 2021-07-11 06:16 | NUR ---
DERRICK CONTINUES ON BIPAP12/10 85%, HE STRUGGLES WITH BEING COMPLIANT ABOUT PRONING, WHICH HE DID NOT DO ANY OF LAST NIGHT. HE DID SLEEP ON HIS RIGHT SIDE AND HIS LEFT SIDE. WE HAD HIM SIT ON THE EDGE OF THE BED ONCE TO EAT, PER HIS REQUEST, AND HE DID NOT TOLERATE THE AIRVO. HE DIDN'T LIKE IT AND HE ALSO WAS IN A BIT OF A PANIC. HE TOLERATED SIPS OF WATER T/O THE NIGHT AND WOULD DESAT TO THE LOW 80'S BUT RECOVER IN ABOUT 5-10 MINUTES. HE CONTINUES TO PUT HIS FINGER INSIDE HIS MASK, THINKING THAT HE IS GETTING "FRESH AIR". HE HAS BEEN TOLD ON SEVERAL OCCASIONS THAT THIS DISRUPTS THE PROGRESS HE MAKES. HE CONT WITH THE EDGE WITH GOOD OUTPUT, LIQUID STOOL PER BED KHAN, SR ON THE TELEMETRY SPOKE WITH S/O AND SON EARLY IN THE SHIFT, THEY ARE WANTING TO ENCOURAGE HIM TO FOLLOW THE INSTRUCTIONS AND DO WE ASK.
--- NOTE | 2021-07-11 08:33 | NUR ---
TRANSFER FROM FLOOR AT 0800 ON BIPAP WITH FIO2 100%, HR 140'S, RESPIRATORY RATE 27, INCREASE ANXIETY WITH MASK IN PLACE ATTEMPTING TO REMOVE. DR AYON AT BEDSIDE TALKING WITH PATIENT ABOUT INTUBATION, BUT PATIENT REFUSING AND WANTS TO WAIT. MEDICATED WITH FENTANYL 50MCG IV TO HELP WITH ANXIETY. FAMILY ARRIVED AND DR AYON WILL SPEAK WITH THEM. PATIENT AWAKE A&O X4. GOOD RELIEF WITH FENTANYL. PATIENT STATES BREATHING BETTER, BIPAP SETTINGS, 18/10, RATE 14, FIO2 100% WITH SATS 89-90%. BP ELEVATED AND HR 120'S. LUNGS CLEAR ANTERIOR WITH FINE CRACKLES TO LEFT BASE AND DIMINISHED ON RIGHT BASE. ABD ROUND/HYPO BT'S, PEDAL PULSES PRESENT AND RADIAL PULSES PRESENT. SKIN WARM/DRY/INTACT. LOW GRADE TEMP 99.1. PICC PANCHO AND POWER GLIDE JUN. MOVES ALL EXT'S WELL. RESTING COMFORTABLY SEMI ANGUIANO, DOES NOT TOLERATE BEING PRONE POSITION. CONTINUE TO MONITOR AND TX PRN.
--- NOTE | 2021-07-11 09:48 | NUR ---
FAMILY WAS HERE AT BEDSIDE TO VISIT. PATIENT CONTINUES TACHYPNIC 30-40'S, BP STABLE, HR 90-100'S. ATTEMPTED TO REPOSITION IN BED, DECREASE SATS 77%. REMAINS ON BACK WITH SATS 92%. INCREASE ANXIETY, INCREASE PRECEDEX GTT 1.4 AND ATIVAN 1MG IV GIVEN. CONTINUE TO MONITOR.
[2021-07-11 09:51] LABS: Creatinine, Blood 0.79 mg/dL (0.60-1.20); Vancomycin, Trough 12.3 ug/mL (5.0-10.0)
--- NOTE | 2021-07-11 11:32 | NUR ---
NEW CHANGES ON BIPAP SETTINGS PER DR AYON DUE TO HIGH TIDAL VOLUMES. BIPAP 10/10, RATE 14/100% FIO2. PATIENT RESTING COMFORTABLE WITH PRECEDEX GTT INFUSING, TITRATE TO EFFECT. CONTINUE TO MONITOR CLOSELY.
--- NOTE | 2021-07-11 12:54 | NUR ---
1205 PATIENT REMOVED BIPAP MASK OFF AND DECREASE SATS <90%. INCREASE AGITATION/ANXIETY NOTED. DR BONE AT BEDSIDE. TITRATED PRECEDEX TO 1.4MCG AND PROPOFOL 100MCG IVP GIVEN PER DR BONE. INFORMED PATIENT THAT WE ARE TAKING OVER HIS BREATHING AND PLACE A TUBE AND HE SHOOK HIS HEAD "YES". INTUBAED AT 1210 WITH +COLOR CHANGE, ETT 7.5 27 AT TEETH. ROCCURONIUM 20MG AND FENTANYL 50MCG IVP GIVEN PER DR'S ORDERS. STARTED NIMBEX GTT AT 2MCG/KG/MIN, PROPOFOL AT 50MCG AND PRECEDEX AT 0.4MG/KG/HR. PLACED A ORAL GASTRIC TUBE AND CXR ORDERED. GOOD PLACEMENT PER DR BONE. BP STABLE, HR 70'S SINUS AND SATS 92%, VENT SETTIGS AC/VC 22/550/16/100 FIO2. LUNGS CLEAR WITH LEFT BASE FINE CRACKLES. WILL NOTIFY FAMILY WITH UPDATE.
--- NOTE | 2021-07-11 13:04 | NUR ---
PATIENT SEDATED/PARALYZED, TRAIN OF FOUR 4/4. NO BIS MONITOR AVAILABLE DUE TO LACK OF RESOURCES; DR VIDAL.
--- NOTE | 2021-07-11 18:19 | NUR ---
SHIFT SUMMARY PATIENT NOT ABLE TO TOLERATE BIPAP R/T PULLING MASKING OFF AND DECREASE SATS 70'S%. INTUBATED WITH VENT SETTINGS AC/VC 22/550/16/80% WITH SATS >90%. HR AND BP STABLE WITH LEVOPHED 2MCG. PUPILS PIN POINT SLUGGLISH TO LIGHT. NIMBEX GTT AT 2MCG, PROPOFOL 55MCG AND PRECEDEX 1.4MCG INFUSING FOR SEDATION. LUNGS CLEAR WITH DIMINISHED BASES AND FINE RALES TO LEFT BASE. NPO STATUS, CLINIMIX AT 75ML/HR. ORAL GASTRIC TUBE IN PLACE. ABD LARGE/ROUND WITH HYPO BT'S. EDGE TO GRAVITY WITH DARK RICHARD COLOR. ALL EXT'S WARM/DRY/INTACT WITH NO SKIN BREAKDOWN NOTED. PICC PANCHO AND POWER GLIDE TO JUN INTACT. ETT 7.5, 27CM AT TEETH. FAMILY UPDATE ON PATIENTS STATUS. PER DR AYON, PRONE PATIENT TONIGHT. NO OTHER CHANGES AND WILL REPORT OFF TO NOC SHIFT.
--- NOTE | 2021-07-11 22:36 | NUR ---
2000: SBAR REPORT RECEIVED. PATIENT STABLE AND REPORTED TO BE POSITION PRONE. CHART AND MEDICATIONS REVIEWED. NO ACUTE FINDINGS. JROWLETTDNPC
--- NOTE | 2021-07-12 02:46 | NUR ---
07/11/2021 1900: PT STABLE SBAR REPORT RECEIVED. NO ACUTE EVENTS OR CONCERNS. GUARDED FAIR [id number]. 3: PATIENT PRONE AND WELL TOLERATED. PATIENT RESTING VENTED EYES CLOSED TIPPED TO LEFT HIP
--- NOTE | 2021-07-12 06:32 | NUR ---
0400 07/12/2021: PATIENT REMAINS STABLE. t 07/11/21 2100 PATIENT HAS BEEN PLACED PRONE. PATIENT HAS TOLERATED PRONE WELL. O2SATS ABOVE 96 AFTER 0200 WOULD BENEFIT FROM VENT TITRATION DOWN. HYPERTENSIVE AROUND 0200. LEVO TITRATED DOWN AND THEN STOPPED AT 0600. BP 150-160 OVER 80-90. NO LONGER IN NEED OF MEDICINAL PRESSURE SUPPORT. AFEBRILE THROUGHT SHIFT TMAX OF 98.5 AT 0400. INCREASED LEVEL OF URINE OUTPUT AND PITTING EDEMA. PATIENT MAY BENEFIT FROM CONTINUED HEMODYNAMIC REVIEW BY CAMPUS ATTENDING IN AM, AND OR POST RENAL REVIEW DIURETIC? OTHERWISE STABLE THROUGH SHIFT WITH FAMILY UPDATED PRIOR TO MIDNIGHT.JFROWLETTDNPC
--- NOTE | 2021-07-12 07:30 | NUR ---
PATIENT REMAINS IN PRONE POSITION WITH GOOD SATURATIONS 96%, FIO2 80%. WILL TITRATE FIO2 DOWN TOLERATED. REMAINS SEDATED WITH PROPOFOL, PRECEDEX AND NIMBEX. TOF 3/4. CONTINUE TO MONITOR AND TX PRN.
[2021-07-12 07:53] LABS: BASOPHILS ABSOLUTE AUTO 0.02 K/mm3 (0.00-0.23); BASOPHILS PERCENT AUTO 0 % (0-2); EOSINOPHILS ABSOLUTE AUTO 0.01 K/mm3 (0.00-0.68); EOSINOPHILS PERCENT AUTO 0 % (0-6); Hematocrit 39.4 % (37.0-53.0); Hemoglobin 12.1 g/dL (13.5-17.5); IMMATURE GRAN PERCENT AUTO 2 % (0-1); LYMPHOCYTES ABSOLUTE AUTO 0.58 K/mm3 (0.84-5.20); LYMPHOCYTES PERCENT AUTO 5 % (21-46); MONOCYTES ABSOLUTE AUTO 0.37 K/mm3 (0.16-1.47); MONOCYTES PERCENT AUTO 3 % (4-13); Mean Corpuscular HGB 26.7 pg (26.0-34.0); Mean Corpuscular HGB Conc 30.7 g/dL (31.5-36.5); Mean Platelet Volume 10.5 fL (9.1-12.4); NEUTROPHILS ABSOLUTE AUTO 11.57 K/mm3 (1.96-9.15); NEUTROPHILS PERCENT AUTO 91 % (41-73); Platelet Count 191 K/mm3 (150-400); RDW Coefficient Variation 14.2 % (11.7-14.2); RDW Standard Deviation 45.7 fL (35.1-46.3); Red Blood Cell Count 4.54 M/mm3 (4.30-5.90); White Blood Cell Count 12.75 K/mm3 (4.00-11.30)
[2021-07-12 07:58] LABS: Mean Corpuscular Volume 87 fL (80-100)
[2021-07-12 08:01] LABS: Anion Gap 1 mmol/L (6-16); Blood Urea Nitrogen 25 mg/dL (8-24); Bun/Creatinine Ratio 30.1 (12.0-20.0); CO2, Blood 32 mmol/L (21-32); Calcium, Blood 8.6 mg/dL (8.5-10.1); Chloride, Blood 113 mmol/L (98-108); Creatinine, Blood 0.83 mg/dL (0.60-1.20); Glomerular Filtration Rate >60 (60-); Glucose, Blood 199 mg/dL (70-99); Potassium, Blood 5.1 mmol/L (3.5-5.5); Sodium, Blood 146 mmol/L (136-145)
--- NOTE | 2021-07-12 12:38 | NUR ---
1220 UNPRONE PATIENT. LUNGS CLEAR, DECREASE BASES. SATS 90-91%. EET REMAINS IN POSITION 27CM AT TEETH. TOF 3/4. DECREASE PRECEDEX GTT DOWN 1MCG. CONTINUE TO MONITOR AND TX PRN.
--- NOTE | 2021-07-12 18:38 | NUR ---
SHIFT SUMMARY PT TOLERATED PRONE POSITION AND WAS SUPERINATED AT 1220 TODAY WITH OXYGEN SATURATIONS IMPROVING AND ABLE TO TITRATE FIO2 DOWN TO 50% ON VENT. LUNGS REMAIN CLEAR, NOT ABLE TO SUCTION ANY SECRETIONS VIA ETT. VSS AND TEMP WNL'S. TITRATED NIMBEX DOWN 1.5MCG, BUT CONTINUES WITH PROPOFOL AT 55MCG AND PRECEDEX 1.4MCG. TOF 3/4. PULPILS REMAIN EQUAL AND PIN POINT AND SLUGGISH TO LIGHT. ABD LARGE/ROUND WITH HYPO BT'S. STOPPED CLINIMIX AND LIPIDS AND WILL GET DIETARY CONSULT IN AM FOR TUBE FEEDING REGIMEN. NO BOWEL MOVEMENT. SPOKE WITH SIGNIFICANT OTHER VIJI AND UPDATE ON STATUS. NO OTHER CHANGES, WILL REPORT OFF TO NOC SHIFT.
[2021-07-13 03:43] LABS: BASOPHILS ABSOLUTE AUTO 0.02 K/mm3 (0.00-0.23); BASOPHILS PERCENT AUTO 0 % (0-2); EOSINOPHILS ABSOLUTE AUTO 0.18 K/mm3 (0.00-0.68); EOSINOPHILS PERCENT AUTO 2 % (0-6); Hematocrit 39.3 % (37.0-53.0); Hemoglobin 12.2 g/dL (13.5-17.5); IMMATURE GRAN PERCENT AUTO 2 % (0-1); LYMPHOCYTES ABSOLUTE AUTO 0.89 K/mm3 (0.84-5.20); LYMPHOCYTES PERCENT AUTO 7 % (21-46); MONOCYTES ABSOLUTE AUTO 0.42 K/mm3 (0.16-1.47); MONOCYTES PERCENT AUTO 3 % (4-13); Mean Corpuscular HGB 26.8 pg (26.0-34.0); Mean Corpuscular Volume 86 fL (80-100); Mean Platelet Volume 10.3 fL (9.1-12.4); NEUTROPHILS ABSOLUTE AUTO 10.52 K/mm3 (1.96-9.15); NEUTROPHILS PERCENT AUTO 86 % (41-73); Platelet Count 193 K/mm3 (150-400); RDW Coefficient Variation 14.3 % (11.7-14.2); RDW Standard Deviation 45.5 fL (35.1-46.3); Red Blood Cell Count 4.56 M/mm3 (4.30-5.90); White Blood Cell Count 12.23 K/mm3 (4.00-11.30)
[2021-07-13 04:02] LABS: Anion Gap 2 mmol/L (6-16); Blood Urea Nitrogen 26 mg/dL (8-24); Bun/Creatinine Ratio 29.1 (12.0-20.0); CO2, Blood 32 mmol/L (21-32); Calcium, Blood 8.3 mg/dL (8.5-10.1); Chloride, Blood 110 mmol/L (98-108); Creatinine, Blood 0.89 mg/dL (0.60-1.20); Glomerular Filtration Rate >60 (60-); Glucose, Blood 117 mg/dL (70-99); Potassium, Blood 4.4 mmol/L (3.5-5.5); Sodium, Blood 144 mmol/L (136-145)
--- NOTE | 2021-07-13 06:36 | NUR ---
07/13/2021 1900 SBAR REPORT RECEIVED. PATIENT CHART, DOCUMENTATION, AND PHYSICAL EVALUATION COMPLETED. PATIENT SEDATED AND PRALIZED. CONDITION GUARDED AND FAIR. 2137 PATIENT TURNED PRONE FOR COVID 19 PROTOCOL AND ORDER. VENT SETTING AND VITAL SIGNS STABLE AND UNCHANGE. [facility]
--- NOTE | 2021-07-13 08:00 | NUR ---
PATIENT REMAINS IN PRONE POSITION, TOLERATING WELL WITH VENT SETTINGS, SATS >90%. CONTINUES SEDATION/PARALYTIC WITH PROPOFOL, PRECEDEX AND NIMBEX GTT'S. LUNGS CLEAR WITH THICK GRAYSON SECRETIONS NASAL AND ORAL. AFEBRILE. VSS. CONTINUE TO MONITOR AND TX PRN.
--- NOTE | 2021-07-13 09:38 | NUR ---
DR AYON MAKING CHANGES TO VENT SETTINGS. DECREASE TIDAL VITAL 470, RT NOTIFIED.
--- NOTE | 2021-07-13 12:12 | NUR ---
SUPINATE PATIENT; TOLERATED WELL. REPOSITIONED SEMI ANGUIANO. LUNGS CLEAR WITH ORAL SECRETIONS, THICK GRAYSON. VSS. SATS 94%, DECREASED FIO2 TOLERATED. CONTINUE TO MONITOR AND TX PRN. STARTED LASIX THIS AM, DIURESIS WELL.
--- NOTE | 2021-07-13 12:25 | NUR ---
TITRATING NIMBEX GTT TO OFF PER ORDERS. BILATERAL WRIST RESTRAINTS STARTED TO PREVENT FROM PULLING ON LINES/TUBES. CONTINUE TO MONITOR CLOSELY.
--- NOTE | 2021-07-13 16:10 | NUR ---
TURNED OFF NIMBEX GTT PER ORDERS. STARTED FENTANYL 50MCG IV PRN AND ATIVAN 2MG IV PRN FOR SEDATION ADJUNCT. WILL START VITAL KEILA PROTEIN TUBE FEEDS PER FRUIT INSPECTOR ORDER; 10ML/HR TO GOAL RATE 20ML/HR. NEW ORDERS TO CHANGE VENT SETTINGS, DECREASE PEEP 14. CONTINUE TO TITRATE FIO2 TOLERATED.
[2021-07-13 16:42] LABS: Vancomycin, Trough 25.5 ug/mL (5.0-10.0)
--- NOTE | 2021-07-13 18:42 | NUR ---
SHIFT SUMMARY PATIENT VENT SETTINGS CHANGED AC/VC 22/470/14/60 FIO2 WITH SATS >90%. CHANGED OUT EET DUE TO CUFF LEAK. NEW ETT 8.0 @ 27CM AT LIP. PER DR AYON POST CXR, ADVANCE ETT 2CM, RT NOTIFIED. LUNGS REMAIN CLEAR WITH SCANT AMOUNT GRAYSON SECRETIONS VIA ORAL/ETT TUBE. NO BOWEL TODAY. STARTED TUBE FEEDS PER BARREL AND RECEIVER ALIGNER VITAL HIGH PROTEIN AT 10ML/HR TO GOAL RATE 20ML/HR. STARTED DIURESISING WITH LASIX WITH GOOD OUTPUT. BILATERAL RESTRAINTS STARTED DUE TO PARALYTIC DC'D AND PROPOFOL AND PRECEDEX GTT TO CONTINUE FOR SEDATION. ATIVAN AND FENTANYL IVP FOR SEDATION ADJUNCT. SIGNIFICANT OTHER VIJI UPDATED ON STATUS. NO OTHER CHANGES, WILL REPORT OFF TO NOC SHIFT.
[2021-07-14 04:56] LABS: BASOPHILS ABSOLUTE AUTO 0.01 K/mm3 (0.00-0.23); BASOPHILS PERCENT AUTO 0 % (0-2); EOSINOPHILS ABSOLUTE AUTO 0.18 K/mm3 (0.00-0.68); EOSINOPHILS PERCENT AUTO 2 % (0-6); Hematocrit 37.6 % (37.0-53.0); IMMATURE GRAN ABSOLUTE AUTO 0.16 K/mm3 (0.00-0.10); IMMATURE GRAN PERCENT AUTO 2 % (0-1); LYMPHOCYTES ABSOLUTE AUTO 0.87 K/mm3 (0.84-5.20); LYMPHOCYTES PERCENT AUTO 9 % (21-46); MONOCYTES ABSOLUTE AUTO 0.38 K/mm3 (0.16-1.47); MONOCYTES PERCENT AUTO 4 % (4-13); Mean Corpuscular HGB Conc 31.9 g/dL (31.5-36.5); Mean Corpuscular Volume 88 fL (80-100); Mean Platelet Volume 10.9 fL (9.1-12.4); NEUTROPHILS ABSOLUTE AUTO 8.56 K/mm3 (1.96-9.15); NEUTROPHILS PERCENT AUTO 84 % (41-73); Platelet Count 191 K/mm3 (150-400); RDW Standard Deviation 44.5 fL (35.1-46.3); Red Blood Cell Count 4.29 M/mm3 (4.30-5.90); White Blood Cell Count 10.16 K/mm3 (4.00-11.30)
[2021-07-14 05:21] LABS: Albumin, Blood 1.8 g/dL (3.4-5.0); Alk Phos 59 U/L (50-136); Anion Gap 1 mmol/L (6-16); Bilirubin, Total 0.7 mg/dL (0.1-1.0); Blood Urea Nitrogen 26 mg/dL (8-24); Bun/Creatinine Ratio 30.1 (12.0-20.0); CO2, Blood 34 mmol/L (21-32); Calcium, Blood 7.4 mg/dL (8.5-10.1); Chloride, Blood 105 mmol/L (98-108); Creatinine, Blood 0.87 mg/dL (0.60-1.20); Glomerular Filtration Rate >60 (60-); Glucose, Blood 137 mg/dL (70-99); Magnesium, Blood 2.3 mg/dL (1.6-2.4); Phosphorus, Blood 2.7 mg/dL (2.5-4.9); Sodium, Blood 140 mmol/L (136-145)
--- NOTE | 2021-07-14 05:32 | NUR ---
1900 07/13/2021: SBAR REPORT RECEIVED PATIENT GUARDED AND FAIR. FAMILY KATERINA UPDATED AND PHINE TO PATIENT FOR 20 MINUTES. PARTIAL BATH PROVIDED AND PRONE AT 2200. TARDY TO PRONE DUE TO NG TUBE NON FUNCTIONAL AND REPLACED BY 2129. PATIENT WAS SATING 98-99 AND DOWN TO 93-94 WHEN PRONE. HIGH ORAL AND ET DRAINAGE. THICK, FOUL ODOR, GRAYSON AND COPIOUS. 1 TABLESPOONS WORTH EVERY 2 HOURS. URINE MORE CONCENTRATED TODAY YELLOW. INCREASED WORK OF BREATHING NOTED AROUND ET TUBE. PATIENT LESS SEDATED OVER ALL. DIMISHED POSTERIOR LUNG BASE BILATERALLY. PATIENT WOULD BENEFIT FROM UPDATED CHEST XRAY AND SCHEDULED MUCNEX. PATIENT EVALUATED AND ASSESSED. VITAL SIGNS STABLE AND TMAX TEMP 97.9, JROWLETT DNP
[2021-07-14 06:03] LABS: Alanine Aminotransfer (ALT/SGP 78 U/L (12-78); Albumin/Globulin Ratio 0.4 (0.8-1.8); Aspartate Aminotrans (AST/SGOT 48 U/L (12-37); Globulin, Blood 4.7 g/dL (2.2-4.0); Total Protein, Blood 6.5 g/dL (6.4-8.2)
--- NOTE | 2021-07-14 07:00 | NUR ---
RECEIVED REPORT FROM [facility]. PATIENT REMAINS INTUBATED WITH INCREASE PEAK PRESSURES 50'S,RESPIRATORY RATE 30'S, SINUS TACH. ATIVAN 2MG IVP GIVEN FOR SEDATION ADJUNCT AND WILL TALK WITH COBOL DEVELOPER FOR FURTHER ORDERS.
--- NOTE | 2021-07-14 07:35 | NUR ---
SPOKE WITH DR MARTIN REGARDING PATIENTS STATUS. NEW ORDERS TO GIVE FENTANYL 100MCG IVP X1 NOW AND START FENTANYL PIANO PLAYER AT 50MCG/HR. CONTINUE TO MONITOR CLOSELY.
--- NOTE | 2021-07-14 08:30 | NUR ---
GOOD RELIEF WITH ATIVAN AND FENTANYL 100MCG IVP. FENTANYL CONTAINER FINISHER 50MCG/HR STARTING. PATIENT IN PRONE POSITION WITH NASAL SECRETIONS NOTED. SUCTIONED ORALLY WITH MINIMAL GRAYSON SECRETIONS NOTED. ABD LARGE/ROUND WITH HYPO BT'S. NO BOWEL MOVEMENT SINCE 07/11. WILL START BOWEL CARE PER ORDERS. TUBE FEEDS INFUSING AT 10ML/HR, WITH 140CC BILE RESIDUAL/REFED. INCREASED TUBE FEEDS TO GOAL RATE 20ML/HR. EDGE PATIENT WITH DARK RICHARD DRAINING. CONTINUE TO MONITOR AND TX PRN.
--- NOTE | 2021-07-14 12:00 | NUR ---
SUPINATE PATIENT WITH LIFT TEAM; TOLERATED WELL. SATS >90%. TITRATE FIO2 DOWN TOLERATED. NO SECRETIONS VIA ETT. VSS.
--- NOTE | 2021-07-14 13:30 | NUR ---
RETURNED SIGNIFICANT OTHER VIJI CALL AND GAVE UPDATE ON PATIENTS STATUS. ANSWERED ALL QUESTIONS.
[2021-07-14 15:40] LABS: Vancomycin, Trough 12.9 ug/mL (5.0-10.0)
--- NOTE | 2021-07-14 18:14 | NUR ---
SHIFT SUMMARY PATIENT REMAINS WITH SAME VENT SETTINGS AC/VC 22/470/14/60% FIO2 WITH SATS 92%. WILL PRONE PATIENT TONIGHT PER DR MARTIN. SUCTION ONLY SCANT AMOUNT OF GRAYSON SECRETIONS ORALLY. LUNGS REMAIN CLEAR. TOLERATING TUBE FEEDINGS AT GOAL RATE 20ML/HR. EDGE TO GRAVITY WITH DARK RICHARD URINE. CONTINUES WITH SEDATION OF PROPOFOL 55MCG, PRECEDEX 1MCGT AND FENTANYL 50MCG EDUCATION COUNSELOR INFUSING. BILATERAL WRIST RESTRAINTS IN PLACE TO PREVENT SELF EXTUBATION. SKIN WNL'S, NO SKIN BREAKDOWN NOTED. NO OTHER CHANGES NOTED, WILL REPORT OFF TO NOC SHIFT.
--- NOTE | 2021-07-14 19:30 | NUR ---
RECEIVED REPORT FROM KENNETH, PT ON VENTILATOR AC 22/470/14/60%. BREATHING 24-26 BPM, PRECEDEX @ 1, PROPOFOL @ 55MCG/KG, FENTANYL GTT @ 50MCG. PT NOT RESPONDING TO VERBAL STIMULI, LUNGS COARSE, ETT SUCTIONING RETURNS MORALES COLOR, ABD SOFT, OG TF VHP @ 20ML/HR WITH RESIDUAL OF 200ML, EDGE TO GRAVITY DRAINAGE,RICHARD RETURN. FEET PUFFY BUT GOOD PULSES, SKIN WARM, SLIGHTLY DAMP.
--- NOTE | 2021-07-14 21:10 | NUR ---
PT PRONED BY RT AND PT AND THIS RN, PT NOW FIGHTING THE VENTILATOR, REQUIRING 100% FIO2, INCREASED THE PROPOFOL FROM 55MCG/KG TO 60MCG/KG. ATIVAN GIVEN.
--- NOTE | 2021-07-15 01:48 | NUR ---
WHEN PT HEAD REPOSITIONED, ETT AND CIRCUIT DISCONNECTED, CAUSING OG TUBE TO COME OUT A SIGNIFICANT AMOUNT. OG TUBE REPLACED, TUBE FEEDING TURNED OFF FOR NOW AND WILL AWAIT AM XRAY FOR CONFIRMATION.
--- NOTE | 2021-07-15 05:26 | NUR ---
DERRICK HAS BEEN PRONE SINCE ~2100, HE HAS BEEN REPOSITIONED AND HEAD TURNS TOLERATED. HE CONTINUES TO HAVE TROUBLE WITH THE CONNECTION BETWEEN THE TUBE AND THE CIRCUIT COMING APART. IT HAS BEEN CHANGED BY RT AND REINSERTED ON MULTIPLE OCCASIONS. HIS TUBE FEEDING HAS BEEN OFF SINCE AROUND 0200 THIS WAS WHEN THE OG CAME OUT WITH THE TUBE DISCONNECT IT WAS TAPED TO THE ETT. HE CONTINUES ON PROPOFOL @ 60MCG/KG, PRECEDEX @ 1MCG/KG, NS @ TKO. FENTANYL LOGISTICS VICE PRESIDENT @ 50MCG/HR. HE CONTINUES TO COUGH ON OCC, SUCTIONING RETURNS THICK MORALES/GRAYSON RETURN. EDGE WITH GOOD OUTPUT. I/O'S +[id number]. SKIN WARM, PULSES PALP. NO NOTICEABLE BREAKDOWN. PICC INFUSING WELL, PG WITH NO BLOOD RETURN BUT FLUSHES WELL.
--- NOTE | 2021-07-15 06:55 | NUR ---
AM LABS DRAWN WITH DEEPAO MILLIE AND SENT TO LAB.
[2021-07-15 07:00] LABS: BASOPHILS ABSOLUTE AUTO 0.01 K/mm3 (0.00-0.23); BASOPHILS PERCENT AUTO 0 % (0-2); EOSINOPHILS ABSOLUTE AUTO 0.13 K/mm3 (0.00-0.68); EOSINOPHILS PERCENT AUTO 1 % (0-6); Hematocrit 35.8 % (37.0-53.0); IMMATURE GRAN ABSOLUTE AUTO 0.13 K/mm3 (0.00-0.10); IMMATURE GRAN PERCENT AUTO 1 % (0-1); LYMPHOCYTES ABSOLUTE AUTO 1.04 K/mm3 (0.84-5.20); LYMPHOCYTES PERCENT AUTO 10 % (21-46); MONOCYTES ABSOLUTE AUTO 0.43 K/mm3 (0.16-1.47); MONOCYTES PERCENT AUTO 4 % (4-13); Mean Corpuscular HGB Conc 30.7 g/dL (31.5-36.5); Mean Corpuscular Volume 88 fL (80-100); Mean Platelet Volume 10.1 fL (9.1-12.4); NEUTROPHILS ABSOLUTE AUTO 8.99 K/mm3 (1.96-9.15); NEUTROPHILS PERCENT AUTO 84 % (41-73); Platelet Count 171 K/mm3 (150-400); RDW Standard Deviation 45.1 fL (35.1-46.3); Red Blood Cell Count 4.07 M/mm3 (4.30-5.90); White Blood Cell Count 10.73 K/mm3 (4.00-11.30)
[2021-07-15 07:15] LABS: Anion Gap 0 mmol/L (6-16); Blood Urea Nitrogen 27 mg/dL (8-24); Bun/Creatinine Ratio 30.8 (12.0-20.0); CO2, Blood 35 mmol/L (21-32); Calcium, Blood 7.5 mg/dL (8.5-10.1); Chloride, Blood 109 mmol/L (98-108); Creatinine, Blood 0.88 mg/dL (0.60-1.20); Glomerular Filtration Rate >60 (60-); Glucose, Blood 131 mg/dL (70-99); Magnesium, Blood 2.6 mg/dL (1.6-2.4); Phosphorus, Blood 2.2 mg/dL (2.5-4.9); Potassium, Blood 4.1 mmol/L (3.5-5.5); Sodium, Blood 144 mmol/L (136-145)
[2021-07-15 07:28] LABS: Vancomycin, Trough 19.4 ug/mL (5.0-10.0)
--- NOTE | 2021-07-15 10:37 | NUR ---
PATIENT TOLERATING PRONE POSITION WITH FIO2 60%, SATS >90%. NASAL DRAINAGE SUCTIONED, THICK GRAYSON BROWNISH FOUL SMELLING SECRETIONS. ORAL CARE PERFORMED. VSS. CONTINUE TO MONITOR AND TX PRN.
--- NOTE | 2021-07-15 13:01 | NUR ---
SUPINATED PATIENT AT NOON, TOLERATED WELL. ABLE TO TITRATE FIO2 DOWN 50%. SIGNIFICANT OTHER VIJI REQUESTED PHONE. PHONE HAND DELIVERED TO HER BY YFN GOLDBERG. LUNGS REMAIN CLEAR. NO SECRETIONS VIA ETT. CONTINUE TO MONITOR.
--- NOTE | 2021-07-15 13:44 | NUR ---
RESTARTED TUBE FEEDS. ORAL GASTRIC TUBE PLACEMENT CONFIRMED WITH 30CC AIR INJECTED.
--- NOTE | 2021-07-15 18:20 | NUR ---
SHIFT SUMMARY PATIENT TOLERATING VENT SETTINGS CHANGES; DECREASING PEEP TO 12. FIO2 HAD TO BE ADJUSTED UP AND DOWN T/O RELATED TO POSITIONING IN BED. FIO2 70% AT THIS TIME. LUNGS REMAIN CLEAR BUT ABLE TO SUCTION THICK GRAYSON SECRETIONS VIA ETT. ETT TUBE AT 29CM AT LIP. TOLERATING TUBE FEEDING AT GOAL RATE 20ML/HR. NO BOWEL TODAY, CONTINUE WITH BOWEL CARE. REMAINS WITH SAME SEDATION GTTS; PROPOFOL AND FENTANYL 50MCG SEISMOGRAPH OPERATOR. ATIVAN 2MG IV X1 GIVEN THIS EVENING DUE TO INCREASE PEAK PRESSURES AFTER REPOSITIONING. NO OTHER CHANGES, WILL REPORT OFF TO NOC SHIFT.
--- NOTE | 2021-07-15 22:06 | NUR ---
ASSUMED CARE AT 1900 PT LAYING IN BED INTUBATED WITH VENT SETTINGS AC 22, TV 470, PEEP 12, FIO2 80%; ETT DISCONNECTS EASILY AND IS [id number] REINFORCED. PT REACTIVE TO PAINFUL STIMULI; PROPOFOL INFUSING AT 60MCG/KG/MIN; PRECEDEX INFUSING AT 1MCG/KG/HR; FENTANYL GTT INFUSING AT 50MCG/HR. AFEBRILE. HR 60'S. SBP 140-150'S. VHP INFUSING AT 20ML/HR WITH 30ML WATER FLUSHES Q4HR; 250ML RESIDUALS NOTED. EDGE IN PLACE AND DRAINING TO GRAVITY. SEE SHIFT ASSESSMENT FOR FULL ASSESSMENT. PT PRONED AT 2014 WITH RT, PCT, 2 HELPING HANDS, AND THIS RN ASSISTED.
[2021-07-16 05:27] LABS: BASOPHILS ABSOLUTE AUTO 0.01 K/mm3 (0.00-0.23); BASOPHILS PERCENT AUTO 0 % (0-2); EOSINOPHILS ABSOLUTE AUTO 0.18 K/mm3 (0.00-0.68); EOSINOPHILS PERCENT AUTO 2 % (0-6); Hemoglobin 10.2 g/dL (13.5-17.5); IMMATURE GRAN ABSOLUTE AUTO 0.09 K/mm3 (0.00-0.10); IMMATURE GRAN PERCENT AUTO 1 % (0-1); LYMPHOCYTES ABSOLUTE AUTO 1.05 K/mm3 (0.84-5.20); LYMPHOCYTES PERCENT AUTO 11 % (21-46); MONOCYTES ABSOLUTE AUTO 0.43 K/mm3 (0.16-1.47); MONOCYTES PERCENT AUTO 5 % (4-13); Mean Corpuscular HGB 27.3 pg (26.0-34.0); Mean Corpuscular HGB Conc 30.9 g/dL (31.5-36.5); Mean Corpuscular Volume 89 fL (80-100); Mean Platelet Volume 10.4 fL (9.1-12.4); NEUTROPHILS ABSOLUTE AUTO 7.75 K/mm3 (1.96-9.15); NEUTROPHILS PERCENT AUTO 82 % (41-73); Platelet Count 178 K/mm3 (150-400); RDW Standard Deviation 45.1 fL (35.1-46.3); Red Blood Cell Count 3.73 M/mm3 (4.30-5.90); White Blood Cell Count 9.51 K/mm3 (4.00-11.30)
[2021-07-16 06:15] LABS: Anion Gap 0 mmol/L (6-16); Blood Urea Nitrogen 26 mg/dL (8-24); Bun/Creatinine Ratio 36.4 (12.0-20.0); CO2, Blood 35 mmol/L (21-32); Calcium, Blood 7.9 mg/dL (8.5-10.1); Chloride, Blood 110 mmol/L (98-108); Creatinine, Blood 0.71 mg/dL (0.60-1.20); Glomerular Filtration Rate >60 (60-); Glucose, Blood 119 mg/dL (70-99); Magnesium, Blood 2.6 mg/dL (1.6-2.4); Phosphorus, Blood 2.3 mg/dL (2.5-4.9); Potassium, Blood 3.8 mmol/L (3.5-5.5); Sodium, Blood 145 mmol/L (136-145)
--- NOTE | 2021-07-16 07:36 | NUR ---
END OF SHIFT SUMMARY NO ACUTE CHANGES THIS SHIFT. PT CONT TO BE INTUBATED WITH VENT SETTINGS AC 22, TV 470, PEEP 12, FIO2 75%; PT PRONED MOST OF THE NIGHT. REACTIVE TO PAINFUL STIMULI; PROPOFOL INFUSING AT 60MCG/KG/MIN; PRECEDEX INFUSING AT 1MCG/KG/HR; FENTANYL INFUSING AT 50MCG/HR. AFEBRILE. HR 60-70'S. SBP 130-140. VHP INFUSING AT 20ML/HR WITH 30ML WATER FLUSHES Q4HR. EDGE PATENT AND DRAINING TO GRAVITY. REPORT GIVEN TO EPIFANIO Velasquez
[2021-07-16 08:04] LABS: Vancomycin, Trough 17.7 ug/mL (5.0-10.0)
--- NOTE | 2021-07-16 10:10 | NUR ---
Care Assumed 0700 Pt intubated and sedated. Propofol GTT 60 mcg/kg/min, Precedex 1 mcg/kg/hr, and Fentanyl 50 mcg/hr, pt grimaces during oral care. Vent settings: AC 22/470/12/75%, SPO2 > 90%. PT ETT disconnects easily and is frequently reinforced. SPO2 decreased to 79% once but patient quickly recover. RT at bedside. Pt coughs often. SBP 150's. VHP @ goal, via OG tube. Cabrera in place. Pt proned currently. SWB in place.
--- NOTE | 2021-07-16 11:27 | NUR ---
UPDATE- Provider visit Dr. Babcock in to see patient. FIO2 decreased from 75% to 60% Pt tolerating change well, spo2 > 92%. WIll continue to monitor. No other updates.
--- NOTE | 2021-07-16 17:58 | NUR ---
Shift Summary Vent settings: AC 22/470/12/55%, SPO2 > 88%. LS coarse, moderate thick zimmer secreations. Propofol GTT 60 MCG/KG/MIN and Precedex 1 mcg/kg/hr, Fentanyl GTT 50 MCG/HR. Pt grimaces during oral care but not opening eyes or following commands. No BM during shift. Cabrera in place. VSS. NSR. Will report to oncoming shift. Attempted to return patients family Vijaya phone call, left voicemail to call back at [facility]
--- NOTE | 2021-07-17 02:03 | NUR ---
SHIFT SUMMARY: PT RECIEVED SUPINE NO SIGNS OF DISTRESS ON VENT AND SEDATION. NEURO- PERRL 2-3MM BRISK. COUGH WITH STIMULATION, RESPONDS TO PAIN. ON PROPOFOL AND FENTANYL AND PRECEDEX FOR SEDATION. CV- NSR, HTN. SBP 170-200. PRN MEDS GIVEN. WITH EFFECTIVE DECREASE IN BP TO 130 SBP. HR 70'S, CAP REFILL >3SEC. WARM AND DRY TO TOUCH. RESP- ON VENT, 60%/RR22/TV470/PEEP12. LUNG SOUNDS CLEAR IN ALL LOBES. XRAY COMPLETED. RT CALLED TO ASSIST WITH OETT. MULTIPLE TIMES IT DISCONNECTED FROM HUB. PT SAT >88% GI- TF AT GOAL, HYPOACTIVE BS. BOWEL MEDS GIVEN. NO BM THIS SHIFT. ABD SOFT/NONTENDER. - EDGE IN PLACE ADEQUATE UOP SKIN- IN TACK SOME REDNESS TO COCCYX. MEPILEX INPLACE.
[2021-07-17 03:55] LABS: BASOPHILS ABSOLUTE AUTO 0.01 K/mm3 (0.00-0.23); BASOPHILS PERCENT AUTO 0 % (0-2); EOSINOPHILS ABSOLUTE AUTO 0.23 K/mm3 (0.00-0.68); EOSINOPHILS PERCENT AUTO 2 % (0-6); Hematocrit 35.7 % (37.0-53.0); Hemoglobin 10.7 g/dL (13.5-17.5); IMMATURE GRAN ABSOLUTE AUTO 0.12 K/mm3 (0.00-0.10); IMMATURE GRAN PERCENT AUTO 1 % (0-1); LYMPHOCYTES ABSOLUTE AUTO 0.89 K/mm3 (0.84-5.20); LYMPHOCYTES PERCENT AUTO 8 % (21-46); MONOCYTES ABSOLUTE AUTO 0.57 K/mm3 (0.16-1.47); MONOCYTES PERCENT AUTO 5 % (4-13); Mean Corpuscular HGB 26.6 pg (26.0-34.0); Mean Corpuscular Volume 89 fL (80-100); Mean Platelet Volume 9.9 fL (9.1-12.4); NEUTROPHILS ABSOLUTE AUTO 9.96 K/mm3 (1.96-9.15); NEUTROPHILS PERCENT AUTO 85 % (41-73); Platelet Count 195 K/mm3 (150-400); RDW Standard Deviation 45.3 fL (35.1-46.3); Red Blood Cell Count 4.02 M/mm3 (4.30-5.90); White Blood Cell Count 11.78 K/mm3 (4.00-11.30)
[2021-07-17 04:11] LABS: Anion Gap -1 mmol/L (6-16); Blood Urea Nitrogen 23 mg/dL (8-24); Bun/Creatinine Ratio 34.7 (12.0-20.0); CO2, Blood 37 mmol/L (21-32); Calcium, Blood 7.7 mg/dL (8.5-10.1); Chloride, Blood 109 mmol/L (98-108); Creatinine, Blood 0.66 mg/dL (0.60-1.20); Glomerular Filtration Rate >60 (60-); Glucose, Blood 129 mg/dL (70-99); Magnesium, Blood 2.5 mg/dL (1.6-2.4); Phosphorus, Blood 3.1 mg/dL (2.5-4.9); Potassium, Blood 4.1 mmol/L (3.5-5.5); Sodium, Blood 145 mmol/L (136-145)
[2021-07-17 04:59] LABS: PCO2 Arterial 65.9 mmHg (35-45); PO2 Arterial 72.6 mmHg (80-100); pH Blood Arterial 7.37 (7.35-7.45)
--- NOTE | 2021-07-17 18:04 | NUR ---
AT 1803, DR. MARTIN'S ANSWERING SERVICE WAS CALLED AND PT'S CURRENT FLUID BALANCE WAS REPORTED VIA MESSAGE.
--- NOTE | 2021-07-17 18:25 | NUR ---
SUMMARY PT INTUBATED AND SEDATED WITH PROPOFOL, PRECEDEX AND FENTANYL. PT HAS COUGH REFLEX. HAS MOD AMT OF THICK GRAYSON SPUTUM. NO CHANGES IN CONDITION TODAY. NO SIGN OF DISTRESS.
--- NOTE | 2021-07-18 01:30 | NUR ---
DERRICK CONTINUES TO HAVE HIGH PEAK PRESSURE ALARMS, HE IS PRONE, HAS BEEN SINCE AROUND 2100, HIS HEAD/POSITION WAS CHANGED AT AROUND MIDNIGHT AND HE HAS BEEN STRUGGLING SINCE. HE WAS MEDICATED WITH ADDITIONAL FENTANYL, HIS DRIP IS NOW AT 100MCG/HR, HE WAS ALSO GIVEN ATIVAN 2MG. CONTINUES WITH HIGH PEAK PRESSURES, CALL TO AND ORDERS RECEIVED TO INCREASE THE PRECEDEX FROM 1 TO 1.2 MCG/KG/HR. VERBAL REASSURANCE, MUSIC HE LIKES PLAYING. SHOULDERS REPOSITIONED SAYS THEY HAVE BEEN PREVIOUSLY INJURED. PILLOW UNDER ABDOMEN FOR BACK COMFORT.
--- NOTE | 2021-07-18 02:46 | NUR ---
PT RECEIVED, ON VENT, SUPINE, FENTANYL 50MCG, PROP 60, AND DEX AT 1. NO SIGNS OF DISTRESS. VITALS STABLE. PRONE AT 1999. PT TOLERATED.
--- NOTE | 2021-07-18 06:14 | NUR ---
PT HAS HAD SOME DIFFICULTIES TOLERATING THE VENT OVERNIGHT. WHEN PT SWAM FROM LEFT SIDE UP TO RIGHT SIDE UP. PT BRADIED TO 48, BP DROPPED TO SBP 90'S AND SPO2 DECREASED TO 80%. RT AND TWO RN'S SUCTIONED, REPOSITIONED, AND MONITORED PT UNTIL THEY STABILIZED. NEURO- COUGHS AND GAGS, PERRLA. 2-3MM, RESPONDS TO PAIN. IS SEDATED ON PROPOFOL, PRECEDEX, AND FENTANYL. CV. ONE EPISODE OF MICHAEL CARDIA BUT HAS BEEN STABLE NSR IN THE 65-70 RANGE SINCE MIDNIGHT. AT SAME TIME PT BP DROPPED BUT HAS RECOVERED. RESP- AT MIDNIGHT PT WAS TURNED AND DID NOT TOLERATE WELL. HAS BEEN FIGHTING VENT MOST OF THE NIGHT EVEN WITH INCREASES IN ALL MEDICATIONS FOR SEDATION. CURRENTLY MAXED PER ORDERS ON ALL THREE MEDS. GI/. NO BM THIS SHIFT. BOWEL MEDS GIVEN, UOP ADEQUATE, SEE I/O'S SKIN- INTACT.
[2021-07-18 08:09] LABS: Vancomycin, Trough 20.5 ug/mL (5.0-10.0)
--- NOTE | 2021-07-18 18:32 | NUR ---
SUMMARY PT INTUBATED AND SEDATED WITH PROPOFOL, PRECEDEX, AND FENTANYL. PT HAS COUGH RELFEX. PEAK PRESSURE FREQUENTLY DESPITE HIGH SEDATION. GRAYSON SPUTUM FROM ETT. NO SIGNIFICANT CHANGES TODAY. NO SIGN OF DISTESS.
[2021-07-19 03:54] LABS: BASOPHILS ABSOLUTE AUTO 0.01 K/mm3 (0.00-0.23); BASOPHILS PERCENT AUTO 0 % (0-2); EOSINOPHILS ABSOLUTE AUTO 0.04 K/mm3 (0.00-0.68); EOSINOPHILS PERCENT AUTO 1 % (0-6); Hematocrit 34.8 % (37.0-53.0); Hemoglobin 10.6 g/dL (13.5-17.5); IMMATURE GRAN ABSOLUTE AUTO 0.13 K/mm3 (0.00-0.10); IMMATURE GRAN PERCENT AUTO 2 % (0-1); LYMPHOCYTES ABSOLUTE AUTO 0.49 K/mm3 (0.84-5.20); LYMPHOCYTES PERCENT AUTO 7 % (21-46); MONOCYTES ABSOLUTE AUTO 0.32 K/mm3 (0.16-1.47); MONOCYTES PERCENT AUTO 4 % (4-13); Mean Corpuscular HGB 27.1 pg (26.0-34.0); Mean Corpuscular HGB Conc 30.5 g/dL (31.5-36.5); Mean Corpuscular Volume 89 fL (80-100); NEUTROPHILS ABSOLUTE AUTO 6.23 K/mm3 (1.96-9.15); NEUTROPHILS PERCENT AUTO 86 % (41-73); Platelet Count 226 K/mm3 (150-400); RDW Coefficient Variation 13.6 % (11.7-14.2); RDW Standard Deviation 44.3 fL (35.1-46.3); Red Blood Cell Count 3.91 M/mm3 (4.30-5.90); White Blood Cell Count 7.22 K/mm3 (4.00-11.30)
[2021-07-19 04:10] LABS: Anion Gap -1 mmol/L (6-16); Blood Urea Nitrogen 20 mg/dL (8-24); Bun/Creatinine Ratio 33.7 (12.0-20.0); CO2, Blood 38 mmol/L (21-32); Calcium, Blood 7.6 mg/dL (8.5-10.1); Chloride, Blood 108 mmol/L (98-108); Creatinine, Blood 0.59 mg/dL (0.60-1.20); Glomerular Filtration Rate >60 (60-); Glucose, Blood 168 mg/dL (70-99); Potassium, Blood 4.2 mmol/L (3.5-5.5); Sodium, Blood 145 mmol/L (136-145)
--- NOTE | 2021-07-19 04:29 | NUR ---
ASSUME CARE PT LAYING SUPINE, NO SIGNS OF DISTRESS. TOLERATING VENT BUT OVER BREATHING. PEAK PRESSURES IN 40'S. PRONED AT 1999. PT FIGHTING VENT AND NOW PEAK PRESSURES IN 50'S. HOSP AND TRIMMING PRESS OPERATOR CALLED FOR DIRECTION ON VENT. AND SEDATION. VERSED ORDERED.TITRATING APPROPRIATELY. NSR, BP STABLE,
--- NOTE | 2021-07-19 04:32 | NUR ---
SUMMARY PT GOT HTN OVER NIGHT. LABETALOL NOT EFFECTIVE. CHG RN SUGGESTED ATIVAN. GAVE AND ALSO UNEFFECTIVE. CALLED MD FOR ADDITIONAL SUPPORT. HYDRALAZINE WAS ORDERED AND HAS BEEN EFFECTIVE. PT HAD 400 RESIDUAL REINSTILLED, BUT TUBE FEED UNSCREWED FROM WHITE ADAPTER AND MOST OF THAT EMPTIED IN THE BED. GREEN BILE COLOR, NONODOROUS. PT BATHED AND LINEN CHANGED. VERSED IS AT MAX AND PT IS STILL FIGHTING VENTILATOR BUT NOT EVERY BREATH HE WAS AT BEGINNING OF SHIFT. STILL DYSYNCHRONOUS. GI NO BM THIS SHIFT. HYPOACTIVE AND TF RESTARTED AFTER BEING HELD BY DAY SHIFT. OVER 1L OUT. SEE I/O'S SKIN INTACT IV'S FLUSH SMOOTHLY. PICC DRAWS BLOOD. AM LABS COMPLETE AND REVIEWED. Q2 TURNS AND Q4H ORAL CARE COMPLETED.
[2021-07-19 05:40] LABS: BAND PERCENT MAN 3 % (0-8); BASOPHILS PERCENT MAN 0 % (0-2); EOSINOPHILS PERCENT MAN 0 % (0-6); LYMPHOCYTES ABSOLUTE MAN 0.07 K/mm3 (0.84-5.20); LYMPHOCYTES PERCENT MAN 1 % (21-46); METAMYELOCYTE ABSOLUTE MAN 0.21 K/mm3 (0.00-0.00); METAMYELOCYTE PERCENT MAN 3 % (0-0); MONOCYTES ABSOLUTE MAN 0.07 K/mm3 (0.16-1.47); MONOCYTES PERCENT MAN 1 % (4-13); NEUTROPHILS ABSOLUTE MAN 6.85 K/mm3 (1.96-9.15); SEG NEUTROPHILS PERCENT MAN 92 % (41-73); TOTAL CELLS COUNTED 100
--- NOTE | 2021-07-19 14:22 | NUR ---
NEW TUBING CHANGED FOR [place] PUMP, PT REPOSITIONED, PREVIOUSLY TO BEDSIDE FOR VENT ADJUSTMENT.
--- NOTE | 2021-07-19 18:42 | NUR ---
SUMMARY PT INTUBATED AND SEDATED WITH PROPOFOL, PRECEDEX, VERSED, AND FENTANYL. STARTED ON ROCURONIUM TODAY DUE TO ASYNCHRONOUS WITH THE VENT. TOF 2/4 ON 10MCG/KG/MIN WITH 8/10 SETTING. FIO2 DOWN TO 50% TODAY. UPDATED BY DR. BONE AND RN. NO OTHER CHANGES TODAY.
--- NOTE | 2021-07-19 22:45 | NUR ---
Assumed care pt supine, tolerating vent. peak preasures <45. on sedation and paralytics. see eMAR for meds. 2000 proned. titrating meds to effect for vent synchrony. no signs of distress. 290ml residual reinstilled, meds passed. on patient monitor.
[2021-07-20 03:57] LABS: BASOPHILS ABSOLUTE AUTO 0.02 K/mm3 (0.00-0.23); BASOPHILS PERCENT AUTO 0 % (0-2); EOSINOPHILS ABSOLUTE AUTO 0.01 K/mm3 (0.00-0.68); EOSINOPHILS PERCENT AUTO 0 % (0-6); Hematocrit 34.4 % (37.0-53.0); Hemoglobin 10.2 g/dL (13.5-17.5); IMMATURE GRAN PERCENT AUTO 1 % (0-1); LYMPHOCYTES PERCENT AUTO 7 % (21-46); MONOCYTES ABSOLUTE AUTO 0.44 K/mm3 (0.16-1.47); MONOCYTES PERCENT AUTO 6 % (4-13); Mean Corpuscular HGB 26.6 pg (26.0-34.0); Mean Corpuscular HGB Conc 29.7 g/dL (31.5-36.5); Mean Corpuscular Volume 90 fL (80-100); Mean Platelet Volume 10.2 fL (9.1-12.4); NEUTROPHILS ABSOLUTE AUTO 6.46 K/mm3 (1.96-9.15); NEUTROPHILS PERCENT AUTO 86 % (41-73); Platelet Count 235 K/mm3 (150-400); RDW Coefficient Variation 13.8 % (11.7-14.2); RDW Standard Deviation 45.2 fL (35.1-46.3); Red Blood Cell Count 3.83 M/mm3 (4.30-5.90); White Blood Cell Count 7.53 K/mm3 (4.00-11.30)
[2021-07-20 04:19] LABS: Albumin, Blood 2.1 g/dL (3.4-5.0); Anion Gap -1 mmol/L (6-16); Blood Urea Nitrogen 22 mg/dL (8-24); Bun/Creatinine Ratio 36.5 (12.0-20.0); CO2, Blood 38 mmol/L (21-32); Calcium, Blood 7.9 mg/dL (8.5-10.1); Chloride, Blood 107 mmol/L (98-108); Glomerular Filtration Rate >60 (60-); Glucose, Blood 171 mg/dL (70-99); Phosphorus, Blood 3.5 mg/dL (2.5-4.9); Potassium, Blood 4.2 mmol/L (3.5-5.5); Sodium, Blood 144 mmol/L (136-145)
--- NOTE | 2021-07-20 06:38 | NUR ---
SUMMARY: NEURO, SEDATED AND PARALYZED. SEE MAR FOR MEDS. JHONATAN AT 8MCG/KG/MIN. PT 1-2/4 ON TOF. PERRL RESP- TOLERATING VENT MUCH BETTER. PEAK PRESSURES IN 30'S WHILE PRONED. CLEAR T/O. SPO2 >92% CV. SB-NSR. SBP 120-160'S. NO PRN MEDS PASSED. HTN ASSOCIATED WITH ACTIVITY(TURNS,ORAL CARE, ETC..) GI- HYPOACTIVE, MEDS PASSED. NO BM THIS SHIFT. SEE I/O'S BUT GOOD OUT PUT FOR SHIFT. RICHARD IN COLOR. NON ODOROUS. SKIN INTACT.
--- NOTE | 2021-07-20 17:22 | NUR ---
PT JHONATAN STOPPED PER MD ORDER. VERSED TO 2. PROPOFOL 50. PT REMAINS STABLE. DOES NOT FOLLOW COMMANDS OR OPEN EYES TO VOICE OR PAIN. FAMILY UPDATED.
[2021-07-21 05:25] LABS: BASOPHILS ABSOLUTE AUTO 0.01 K/mm3 (0.00-0.23); BASOPHILS PERCENT AUTO 0 % (0-2); EOSINOPHILS ABSOLUTE AUTO 0.01 K/mm3 (0.00-0.68); EOSINOPHILS PERCENT AUTO 0 % (0-6); Hematocrit 34.2 % (37.0-53.0); Hemoglobin 10.4 g/dL (13.5-17.5); IMMATURE GRAN ABSOLUTE AUTO 0.11 K/mm3 (0.00-0.10); IMMATURE GRAN PERCENT AUTO 1 % (0-1); LYMPHOCYTES ABSOLUTE AUTO 0.91 K/mm3 (0.84-5.20); LYMPHOCYTES PERCENT AUTO 8 % (21-46); MONOCYTES ABSOLUTE AUTO 0.68 K/mm3 (0.16-1.47); MONOCYTES PERCENT AUTO 6 % (4-13); Mean Corpuscular HGB 27.1 pg (26.0-34.0); Mean Corpuscular HGB Conc 30.4 g/dL (31.5-36.5); Mean Corpuscular Volume 89 fL (80-100); Mean Platelet Volume 10.7 fL (9.1-12.4); NEUTROPHILS ABSOLUTE AUTO 9.55 K/mm3 (1.96-9.15); NEUTROPHILS PERCENT AUTO 85 % (41-73); Platelet Count 233 K/mm3 (150-400); RDW Coefficient Variation 14.1 % (11.7-14.2); RDW Standard Deviation 45.3 fL (35.1-46.3); Red Blood Cell Count 3.84 M/mm3 (4.30-5.90); White Blood Cell Count 11.27 K/mm3 (4.00-11.30)
[2021-07-21 05:49] LABS: Albumin, Blood 2.1 g/dL (3.4-5.0); Anion Gap 1 mmol/L (6-16); Blood Urea Nitrogen 25 mg/dL (8-24); Bun/Creatinine Ratio 39.4 (12.0-20.0); CO2, Blood 36 mmol/L (21-32); Calcium, Blood 8.3 mg/dL (8.5-10.1); Chloride, Blood 107 mmol/L (98-108); Creatinine, Blood 0.64 mg/dL (0.60-1.20); Glomerular Filtration Rate >60 (60-); Glucose, Blood 136 mg/dL (70-99); Potassium, Blood 3.9 mmol/L (3.5-5.5); Sodium, Blood 144 mmol/L (136-145)
--- NOTE | 2021-07-21 08:05 | NUR ---
ASSESSMENT- PT SEDATED WITH PROPOFOL AT 60 MCG/KG/MIN, PRECEDEX AT 1.2 MCG/KG/HR, AND VERSED GTT AT 2 MG/HR. OPENS EYES, NO RESPONSE TO VERBAL OR PAINFUL STIMULUS BUT DOES INCREASE RESPIRATORY RATE WITH ANY INTERRUPTION OF SEDATION AND HEARTRATE UP TO 120 FROM 100'S. SINUS TACH. SBP ELEVATED, RX GIVEN. ORALLY INTUBATED, TUBE SECURE. SEE VENT SETTINGS, LUNGS COARSE T/O. SUCTIONED MODERATE AMOUNT THICK GRAYSON SECRETIONS. ABDOMEN LARGE, SOFT WITH ONLY FEW BOWEL SOUNDS. UO VIA EDGE. REPOSITIONED. BILATERAL WRIST RESTRAINTS, EXTUBATION RISK. ENHANCED PRECAUTIONS
--- NOTE | 2021-07-21 11:43 | NUR ---
PT WITH STABLE VS-BP AND HEARTRATE IMPROVED AFTER RX. REPORT TO ZACK CRABTREE. REVIEWED PLAN OF CARE
--- NOTE | 2021-07-21 18:39 | NUR ---
PT CONTINUE TO REQUIRE VENTILATOR AND SEDATION. VERSED D/C PER MD AND PROPFOL REDUCED TO 50MCG. WILL TRY AND WEARN DOWN FIO2 BY TOMMOROW PER MD. UPDATE WAS GIVE TO FAMILY TODAY. WILL CONTINUE TO MONITOR FOR SAFETY.
--- NOTE | 2021-07-21 23:54 | NUR ---
DERRICK LUNGS CONTINUE TO BE COURSE WITH RETURN OF MORALES/GRAYSON SECRETIONS FROM HIS ETT. HE COUGHS SO HARD HE BLEW HIS CIRCUIT OFF HIS ETT. R/T HAYLEE CAME IN AND RE-TAPED AND SECURED THE TUBE. HE IS BREATHING IN THE HI 30'S AND BEEN GIVEN ATIVAN TWICE. HIS PROPOFOL CONTINUES AT 50MCG/KG AND PRECEDEX @ 1.2 MCG/KG, HE HAS A FENTANYL GTT @ 100MCG/HR. HIS RIGHT ANTERIOR CHEST INTO HIS SHOULDER AND NECK IS RED AND WARM, LEFT ELBOW IS WARM, NO REDNESS NOTED. HEART TONES ARE BOUNDING WHEN AUSCULTATED.
--- NOTE | 2021-07-22 04:38 | NUR ---
DERRICK IS CURRENTLY RESTING QUIETLY, NO FIGHTING THE VENTILATOR, NO COUGHING OR RAPID BREATHING. HE IS QUIET AND COMFORTABLE. PROPOFOL, PRECEDEX AND FENTANYL CONTINUE WITHOUT CHANGES. URINE OUTPUT CONTINUES TO BE SUPER.
[2021-07-22 05:01] LABS: Hematocrit 30.5 % (37.0-53.0); Hemoglobin 9.8 g/dL (13.5-17.5); Mean Corpuscular HGB 27.9 pg (26.0-34.0); Mean Corpuscular HGB Conc 32.1 g/dL (31.5-36.5); Mean Corpuscular Volume 87 fL (80-100); Mean Platelet Volume 10.1 fL (9.1-12.4); Platelet Count 216 K/mm3 (150-400); RDW Coefficient Variation 14.8 % (11.7-14.2); Red Blood Cell Count 3.51 M/mm3 (4.30-5.90); White Blood Cell Count 11.42 K/mm3 (4.00-11.30)
[2021-07-22 05:22] LABS: Albumin, Blood 1.9 g/dL (3.4-5.0); Anion Gap 2 mmol/L (6-16); Blood Urea Nitrogen 23 mg/dL (8-24); Bun/Creatinine Ratio 33.9 (12.0-20.0); CO2, Blood 35 mmol/L (21-32); Calcium, Blood 7.1 mg/dL (8.5-10.1); Chloride, Blood 104 mmol/L (98-108); Creatinine, Blood 0.68 mg/dL (0.60-1.20); Glomerular Filtration Rate >60 (60-); Glucose, Blood 134 mg/dL (70-99); Potassium, Blood 3.2 mmol/L (3.5-5.5); Sodium, Blood 141 mmol/L (136-145); Triglycerides 761 mg/dL (30-160)
[2021-07-22 05:49] LABS: BAND PERCENT MAN 11 % (0-8); BASOPHILS PERCENT MAN 0 % (0-2); EOSINOPHILS PERCENT MAN 0 % (0-6); LYMPHOCYTES ABSOLUTE MAN 0.91 K/mm3 (0.84-5.20); LYMPHOCYTES PERCENT MAN 8 % (21-46); METAMYELOCYTE ABSOLUTE MAN 0.34 K/mm3 (0.00-0.00); METAMYELOCYTE PERCENT MAN 3 % (0-0); MONOCYTES ABSOLUTE MAN 0.34 K/mm3 (0.16-1.47); MONOCYTES PERCENT MAN 3 % (4-13); NEUTROPHILS ABSOLUTE MAN 9.82 K/mm3 (1.96-9.15); SEG NEUTROPHILS PERCENT MAN 75 % (41-73); TOTAL CELLS COUNTED 100
--- NOTE | 2021-07-22 06:04 | NUR ---
DERRICK CONTINUES ON VENTILATOR AC 22/470/8/50%. HE IS ON PROPOFOL @ 50MCG/KG, PRECEDEX @ 1.2 MCG/KG, NS @ TKO, FENTANYL @ 100MCG/HR. HIS TUBE FEEDING CONT AT 20ML/HR WITH MINIMAL RESIDUAL. HE IS PASSING FLATUS, GOOD URINE OUTPUT, SOME SEDIMENT NOTED IN THE LINE. HE HAS BEEN TURNED Q2, ORAL CARE Q4 AND HAS RESTED WELL THE LAST COUPLE HOURS WITHOUT ANY ALARMS. EARLY IN THE SHIFT, HE DID DISLODGE THE CIRCUIT FROM HIS ETT X2. HE DROPS SATS TO THE 70'S WHEN THIS HAPPENS. NO OTHER CHANGES NOTED.
--- NOTE | 2021-07-22 08:15 | NUR ---
ASSESSMENT- PT SEDATED WITH PROPOFOL AT 50 MCG/KG/MIN DECREASED TO 40 MCG/KG/MIN, PRECEDEX AT 1.2 MCG/KG/HR AND FENTANYL LEHR TENDER AT 100 MCG/HR. NO RESPONSE TO VERBAL OR PAINFUL STIMULUS. PERRL. ORALLY INTUBATED, TUBE SECURE. LUNGS CLEAR, DIMINISHED BASES ESPECIALLY RIGHT BASE. SUCTIONED SMALL AMOUNT GRAYSON SECRETIONS. APICAL REGULAR, SR. BP STABLE.ABDOMEN LARGE, SOFT WITH BOWEL SOUNDS. TUBE FEEDING VITAL HP AT GOAL 20 CC/HR RESIDUAL 40 CC REPLACED. UO VIA EDGE RICHARD WITH SEDIMENT. IV NS TKO. LEFT ARM PICC AND RIGHT ARM POWER GLIDE DI. REPOSITIONED. RESTRAINTS FOR SAFETY, EXTUBATION RISK
--- NOTE | 2021-07-22 10:30 | NUR ---
ETT POPPED OFF VENT, REPLACED QUICKLY. UNABLE TO COMPLETELY SECURE. UPDATE TO RT AND DR. AYON, PLANS FOR REINTUBATION. PT INCONTINENT, BATH DONE. REPOSITIONED. TOLERATED WELL.
--- NOTE | 2021-07-22 11:05 | NUR ---
ETT CONNECTOR POPPING OFF CIRCUIT. UNABLE TO STABILIZE SECURELY. DR. AYON AND DR. CORONADO AT BEDSIDE, PT REINTUBATED USING TUBE EXCHANGER. 8 ETT 28 BUSTER. LUNGS COARSE, DIMINISHED RIGHT BASE. TOLERATED PROCEDURE
--- NOTE | 2021-07-22 12:51 | NUR ---
PT'S FAMILY AT WINDOW. CALLED IN-UPDATED AND ABLE TO USE SPEAKER. PT WITH STABLE VS. PLANS TO D/C PROPOFOL D/T TRIGLYCERIDES
--- NOTE | 2021-07-22 14:31 | NUR ---
ADDED ADDITIONAL FENTANYL GTT TO MAKE 150 MCG/HR. ATTEMPT TO DECREASE PROPOFOL EARLIER-EYES OPEN, RESP RATE INCREASED, VENT INTOLERANCE. PROPOFOL AT 40 MCG/KG/MIN, DECREASED TO 30 MCG/KG/MIN. WILL CONTINUE TO ASSESS
--- NOTE | 2021-07-22 17:09 | NUR ---
UNABLE TO WEAN PROPOFOL LESS THAN 30 MCG/KG/MIN, BECOMES TACHYPNEIC, FREQUENT COUGHING. EYES OPEN BUT NO RESPONSE TO ANY COMMANDS. DOESN'T MOVE EXTREMITIES. DR. AYON HERE-UPDATED.
--- NOTE | 2021-07-22 17:21 | NUR ---
DR. YIN HERE-UPDATED
--- NOTE | 2021-07-22 18:30 | NUR ---
REPOSITIONED. EYES OPEN, BECOMES RESTLESS WITH ANY STIMULATION. NSR. TOLERATING VENT. LINES INTACT. CONTINUE TO MONITOR
--- NOTE | 2021-07-22 23:00 | NUR ---
SINCE STARTING THE SHIFT, DERRICK HAS BEEN AGITATED, BREATHING RAPIDLY. HE WOULD OPEN HIS EYES, BUT NOT FOCUS ON YOU. HE WOULD MOVE HIS HEAD AND HIS RIGHT ARM SLIGHTLY. HE CONTINUED TO HAVE TACHYPNEA AND ELEVATED BLOOD PRESSURE, MEDICATED PER MAR WITH LITTLE TO NO RELIEF. CALL WAS MADE TO , ORDERS RECEIVED. ATIVAN DRIP AND ROCURONIUM STARTED PER ORDERS, PT CONTINUED TO FIGHT THE VENTILATOR AND BLOOD PRESSURE REMAINED ELEVATED, ANOTHER CALL TO DR. SALAS, FURTHER ORDERS RECEIVED. SEE FLOW SHEET FOR DOCUMENTATION R/T MEDS GIVEN. PHONE CALL TO S.O. AND SON TO UPDATE AND LET THEM TALK TO PT. NO DIFFERENCE NOTED IN PATIENT RESPONSE. CONTINUES TO BE HYPERTENSIVE, BUT IS NOW RIDING THE VENT. ATIVAN AT 6MG, JHONATAN @ 10MCG/KG, FENT @ 150MCG, PROP DOWN TO 10, WEANING OFF. PRECEDEX @ 1.4. FIO2 INCREASED TO 80% FOR DESATURATION WHEN PARALYSIS OBTAINED. BED IN MOTION FOR 30 MINUTES EACH SIDE.
--- NOTE | 2021-07-23 03:21 | NUR ---
DERRICK CONTINUES WITH ROCURONIUM @ 10MCG/KG/MIN, PROPOFOL IS OFF, PRECEDEX @ 1.4 MCG/KG/HR, FENTANYL 150 MCG/HR, ATIVAN @ 6MG/HR, NS @ 10ML/HR. HE IS TOLERATING THE VENTILATOR WELL AND HIS BLOOD PRESSURES ARE WITHIN NORMAL LIMITS. HIS SECRETIONS FROM THE ETT ARE LESS NOW, HEART RATE TACHY. EDGE WITH GOOD OUTPUT.
[2021-07-23 04:04] LABS: Hematocrit 30.8 % (37.0-53.0); Hemoglobin 9.2 g/dL (13.5-17.5); Mean Corpuscular HGB 27.1 pg (26.0-34.0); Mean Corpuscular HGB Conc 29.9 g/dL (31.5-36.5); Mean Corpuscular Volume 91 fL (80-100); Mean Platelet Volume 9.9 fL (9.1-12.4); Platelet Count 212 K/mm3 (150-400); RDW Coefficient Variation 14.7 % (11.7-14.2); RDW Standard Deviation 47.9 fL (35.1-46.3); White Blood Cell Count 10.88 K/mm3 (4.00-11.30)
[2021-07-23 04:23] LABS: Anion Gap 1 mmol/L (6-16); Blood Urea Nitrogen 26 mg/dL (8-24); Bun/Creatinine Ratio 31.6 (12.0-20.0); CO2, Blood 36 mmol/L (21-32); Chloride, Blood 105 mmol/L (98-108); Creatinine, Blood 0.82 mg/dL (0.60-1.20); Glomerular Filtration Rate >60 (60-); Glucose, Blood 185 mg/dL (70-99); Potassium, Blood 3.6 mmol/L (3.5-5.5); Sodium, Blood 142 mmol/L (136-145)
[2021-07-23 05:07] LABS: BAND PERCENT MAN 15 % (0-8); BASOPHILS PERCENT MAN 0 % (0-2); EOSINOPHILS PERCENT MAN 1 % (0-6); LYMPHOCYTES ABSOLUTE MAN 0.43 K/mm3 (0.84-5.20); LYMPHOCYTES PERCENT MAN 4 % (21-46); METAMYELOCYTE ABSOLUTE MAN 0.21 K/mm3 (0.00-0.00); METAMYELOCYTE PERCENT MAN 2 % (0-0); MONOCYTES ABSOLUTE MAN 0.21 K/mm3 (0.16-1.47); MONOCYTES PERCENT MAN 2 % (4-13); MYELOCYTE PERCENT MAN 1 % (0-0); NEUTROPHILS ABSOLUTE MAN 9.79 K/mm3 (1.96-9.15); SEG NEUTROPHILS PERCENT MAN 75 % (41-73); TOTAL CELLS COUNTED 100
--- NOTE | 2021-07-23 06:16 | NUR ---
DERRICK HAS RESTED WELL FOR THE LATER PART OF THE SHIFT. HE CONTINUES ON THE VENTILATOR AC/VC+ 22/470/8/80%. HE IS ON PRECEDEX 1.4 MCG/KG, FENTANYL 150MCG PER HOUR, ATIVAN 6MG/HR, ROCURONIUM 10MCG/KG/MIN, NS TKO. TF PIVOT 1.5 @ 20 ML/HR. EDGE TO GRAVITY DRAINAGE, TURNED Q2, ORAL CARE Q4, BED ALSO ON ROTATE.
--- NOTE | 2021-07-23 16:26 | NUR ---
TOF-2/4 RIGHT BROW
--- NOTE | 2021-07-24 02:29 | NUR ---
DERRICK WAS TURNED TO PRONE POSITION AROUND 2029, HE HAS TOLERATED THE PRONE POSITION WELL. HE IS ON THE VENTILATOR 22/470/8/80%. HE HAS PIVOT TUBE FEEDING INFUSING AT 35ML/HR, FENTANYL @ 100MCG/HR, VERSED @ 5MG/HR, PRECEDEX @ 1.4 MCG PER KG, ROCURONIUM @ 10MCG/KG/MIN. HE WAS ON FENTANYL @ 50 MCG AT THE START OF MY SHIFT, HE WAS INCREASED TO 100 MCG/HR WHEN TURNED TO PRONE. ToF IS 1/4, ROM HAS BEEN DONE, SKIN CARE, ORAL CARE WITH BLEEDING IN HIS MOUTH. EDGE TO GRAVITY DRAINAGE WITH GOOD URINE OUTPUT. BOWEL CARE MEDS GIVEN. NO ADDITIONAL PRNS GIVEN HE IS TOLERATING THINGS WELL.
--- NOTE | 2021-07-24 05:08 | NUR ---
SUMMARY: 0400 CAME TO DO HEAD POSITION CHANGE WHILE IN PRONE POSITION, 5 PERSONS ASSIST. HEAD TURNED TO LEFT WHILE PRONE, PT BEGAN NOT RECEIVING HIS FULL VOLUMES, TUBE CHECKED, LINES CHECKED, NOTHING VISIBLE TO EXPLAIN. TEAM BROUGHT IN TO RETURN PATIENT TO SUPINE POSITION, TUBE CHECKED, XRAY DONE, CONTINUE TO SAT IN THE HI 70'S, LOW 80S. CHARGE NURSE CALLING . PT CONTINUES IN THE LOW 80'S WITH NO CHANGE DESPITE CHANGES MADE IN VENTILATOR SETTINGS. HE CONTINUES WITH ROCURONIUM @ 10MCG/KG, PRECEDEX @ 1.4MCG/KG, VERSED 5 MG, FENTANYL @ 100MCG. SATS 82%. AND SON COMING.
[2021-07-24 06:24] LABS: Hematocrit 33.3 % (37.0-53.0); Hemoglobin 9.2 g/dL (13.5-17.5); Mean Corpuscular HGB 26.3 pg (26.0-34.0); Mean Corpuscular HGB Conc 27.6 g/dL (31.5-36.5); Mean Corpuscular Volume 95 fL (80-100); Mean Platelet Volume 9.9 fL (9.1-12.4); NRBC ABSOLUTE 0.02 K/mm3 (0.00-0.02); NRBC Auto 0.4 /100 WBC (0.0-0.2); Platelet Count 240 K/mm3 (150-400); RDW Coefficient Variation 14.7 % (11.7-14.2); RDW Standard Deviation 51.8 fL (35.1-46.3); White Blood Cell Count 4.83 K/mm3 (4.00-11.30)
--- NOTE | 2021-07-24 06:31 | NUR ---
FAMILY IS AT THE BEDSIDE, PT IS STABLE, SATS ARE 89-90%, HE REMAINS ON 100% AND HIS PEEP IS 14. THE DRIPS ARE UNCHANGED, BELIEVES HE HAS GRIPPED HER HAND A BIT. MOTHER ASKING IF SOMEONE COULD BE BY HIS SIDE DAILY TO KEEP HIM IN GOOD SPIRITS, EXPLAINED AGAIN ABOUT THE RULES AT THIS TIME. THEY UNDERSTAND THAT WE CALLED BECAUSE WE WERE UNSURE IF HE WAS GOING TO PULL THROUGH HIS SPELL OF SATS IN THE 70'S. , SON, MOTHER, SISTER AND BROTHER IN LAW BY HIS SIDE.
[2021-07-24 06:42] LABS: Blood Urea Nitrogen 25 mg/dL (8-24); Bun/Creatinine Ratio 31.6 (12.0-20.0); CO2, Blood 39 mmol/L (21-32); Calcium, Blood 7.2 mg/dL (8.5-10.1); Chloride, Blood 113 mmol/L (98-108); Creatinine, Blood 0.79 mg/dL (0.60-1.20); Glomerular Filtration Rate >60 (60-); Glucose, Blood 78 mg/dL (70-99); Phosphorus, Blood 1.4 mg/dL (2.5-4.9); Potassium, Blood 3.4 mmol/L (3.5-5.5); Sodium, Blood 150 mmol/L (136-145)
[2021-07-24 06:59] LABS: BAND PERCENT MAN 36 % (0-8); BASOPHILS PERCENT MAN 0 % (0-2); EOSINOPHILS PERCENT MAN 0 % (0-6); LYMPHOCYTES ABSOLUTE MAN 0.43 K/mm3 (0.84-5.20); LYMPHOCYTES PERCENT MAN 9 % (21-46); MONOCYTES ABSOLUTE MAN 0.14 K/mm3 (0.16-1.47); MONOCYTES PERCENT MAN 3 % (4-13); MYELOCYTE ABSOLUTE MAN 0.04 K/mm3 (0.00-0.00); MYELOCYTE PERCENT MAN 1 % (0-0); SEG NEUTROPHILS PERCENT MAN 51 % (41-73); TOTAL CELLS COUNTED 100
[2021-07-24 07:10] LABS: Anion Gap 0 mmol/L (6-16)
--- NOTE | 2021-07-24 10:33 | NUR ---
INtroduction: Task Force Reassurance called for Plug And Mold [employer]isher support for grieving family near entrance. Assessment: Relating to Pt in ICU #10, Pt's family walking frantically outside of hospital crying and trying to process condition of pt in ICU that is declining. Son of pt pacing and crying and processed some angry distraught emotions upon hearing of his fathers decline and possible imminient . Spouse of pt expressing through tears (slightly accepting more of her husbands condition) said, "He'll pull through". Family of pt then went into the hospital and to the ICU room of pt. Waiting there was sisiter of pt and her and the pt's mother at the bedside or pt that was unresponsive. Intervention: Attempted to cultivated a relationship of care and support. Explored spiritual, emotional, and relational resources and needs. Provided words of hope and bereavement support. Provided prayer according to pt and family em tradition. Outcome: Family of pt recieved the prayer with acceptance and gratitude. Family clinging to hope of better outcome for pt but visually seeing decline and in small amounts accepting future outcome. Follow up: Continuous follow up with made through out day to provide spiritual support to family.
--- NOTE | 2021-07-24 10:49 | NUR ---
ASSUMED CARE OF PT, REPORT RCV'D FROM LEYDA THOMAS. PT SUPINE, VENT SETTINGS 22/470/14/100% AT START OF SHIFT, CHANGED TO PEEP OF 20/100% D/T SUSTAINED SATS<80%, SATS CURRENTLY 75-80%. PT'S FAMILY REMAINS AT BEDSIDE, PALLIATIVE AND SPIRITUAL CARE WITH FAMILY. PRECEDEX @ 1.4 MCG/KG/HR, FENTANYL GTT @ 100 MCG/HR, VERSED @ 5 MG/HR. ROCURONIUM @ 10 MCG/KG/MIN, 1/4 TOF. LEVOPHED STARTED D/T HYPOTENSION WITH MAP IN 50'S. CURRENTLY LEVOPHED MAXXED OUT AT 20 MCG/MIN, WILL START VASOPRESSIN WHEN AVAILABLE FROM PHARMACY. HR 140-160'S WITH BOUNDING PULSES. EDGE PATENT AND DRAINING TO GRAVITY. SEE FULL SHIFT ASSESSMENT.
--- NOTE | 2021-07-24 11:35 | NUR ---
Spiritual care visit conducted. Patient's son MELVIN leaves ICU-10 and appears distraught. I go out to the parking lot to check on MELVIN. He talks about his anger because he feels so helpless and he feels like his father would never deserve to have this terrible virus put on him. We talk about God, the cycle of and life and the positive he can do and is empowered to do. I provide therapeutic listening and a calming presence. MELVIN responds well and does in fact relax and then a family friend arrives and takes a walk with him and he continues to deescalate. I will continue to remain available to patient and family.
--- NOTE | 2021-07-24 13:30 | NUR ---
Summary of multiple visits throughout the day today. Called to ICU by ICU charge auditor this morning at 0845. Pt's condition has been declining since early this morning. On vent, O2 sats dropped to the 50s, pt was unproned, sats moderately improved to the 70-80 range. Family was called by cyber operator RN and pt's mother, pt's S.O., pt's sister and KAYLI are at the bedside. Met this family in pt's room. Chaplain Campbell also at the bedside. Pt's family is distraught, they are hoping for miracle and are not processing the gravity of Neon's illness at this time. Dr. Patricia came in and explained what Neno's condition currently is. Family is waiting for a couple daughters to come from out of town. They are enroute and are expected around lunch time today. 1245: Two daughters and extended family have arrived. Pt's daughters, son and extended family have stepped out of his room and would like to meet outside in the yard outside of the hospital. Met with extended family with Chaplain Campbell also present. Explained to them that Neno is now on two pressor medications with contiued low blood pressures and O2 saturations in the 70-80s. Explained that despite best efforts that Neno continues to rapidly decline. Family friend asked if Neno and Vijaya (his S.O.) could get . Explained that this would not be a legal marriage, only a ceremony to express their love for him. Per family, Neno has asked Vijaya to him many times over the past 30 years. Family will talk with Vijaya and see if this is something she would like to do. Chaplain Campbell stated that she would be willing to assist with a ceremony. Explained a second time that this marriage would not be legal, family verbalizes understanding. Allowed family time to ask questions and process information. 1300: Returned to ICU to be present with Chaplain Ramirez, Chaplain Campbell and extended family all in the Neno's room for a ceremony. Allowed family to spend some time together. During this customs entry writer's conversation with family members outside, Dr. Patricia spoke with remaining family (pt's mother, S.O., sister, KAYLI) about worsening condition. Pt has not officially been made comfort care, however he is a DNR and family members are verbalizing their goodbyes and appear to be starting to except that Neno appears to be actively dying. 1330: Called back to ICU by Tubing Machine Tenderseven Campbell. Pt has and family is asking what comes next. Arrived in pt's room spoke with family. Family is grieving appropriately at this time. Pt' s family would like to have him cremated at [facility]. Pt's family also requests that he be extubated so that they can see Neno and say goodbye with all the tubes removed from his face. Spoke with ICU charge auditor, Lynn and relayed that information. Lynn states they will extubate Neno and give family time to grieve and say their goodbyes. Family will take Neno's belongings home.
== END 2021-07-24 13:00 | DRG 207 ==
LOC: ER 07:39 → ICUW 10:05 → ERHOLD 10:05 → PCU 10:05 → ICUW 07-03 18:12 → SURS 07-05 10:43 → ICUW 07-11 08:08
PROVIDERS: Emergency Medicine; Family Medicine; Internal Medicine; Internal Medicine Critical Care Medicine; Pharmacist; ADMIT Family Medicine
PROC: 3E0333Z Introduction of Anti-inflammatory into Peripheral Vein, Percutaneous Approach (ICD-10-PCS; principal; 2021-07-02)
PROC: 8E0ZXY6 Isolation (ICD-10-PCS; 2021-07-02)
PROC: 5A09557 Assistance with Respiratory Ventilation, Greater than 96 Consecutive Hours, Continuous Positive Airway Pressure (ICD-10-PCS; 2021-07-02)
PROC: XW033E5 Introduction of Remdesivir Anti-infective into Peripheral Vein, Percutaneous Approach, New Technology Group 5 (ICD-10-PCS; 2021-07-03)
PROC: 5A1955Z Respiratory Ventilation, Greater than 96 Consecutive Hours (ICD-10-PCS; 2021-07-11)
PROC: 0BH17EZ Insertion of Endotracheal Airway into Trachea, Via Natural or Artificial Opening (ICD-10-PCS; 2021-07-11)
PROC: 02HV33Z Insertion of Infusion Device into Superior Vena Cava, Percutaneous Approach (ICD-10-PCS; 2021-07-11)
PROC: 3E033XZ Introduction of Vasopressor into Peripheral Vein, Percutaneous Approach (ICD-10-PCS; 2021-07-21)
DX: U07.1 COVID-19 (principal); J96.01 Acute respiratory failure with hypoxia; J12.82 Pneumonia due to coronavirus disease 2019; J15.212 Pneumonia due to Methicillin resistant Staphylococcus aureus; N17.9 Acute kidney failure, unspecified; Z68.41 Body mass index [BMI] 40.0-44.9, adult; Z66 Do not resuscitate; I10 Essential (primary) hypertension; E66.01 Morbid (severe) obesity due to excess calories; F41.9 Anxiety disorder, unspecified; G47.33 Obstructive sleep apnea (adult) (pediatric); E78.5 Hyperlipidemia, unspecified; Z90.49 Acquired absence of other specified parts of digestive tract; Z98.890 Other specified postprocedural states; Z88.1 Allergy status to other antibiotic agents; N18.30 Chronic kidney disease, stage 3 unspecified; Z88.2 Allergy status to sulfonamides; Z88.8 Allergy status to other drugs, medicaments and biological substances; Z79.899 Other long term (current) drug therapy; Z79.82 Long term (current) use of aspirin; Z78.1 Physical restraint status; E78.00 Pure hypercholesterolemia, unspecified
CPT/HCPCS: 31500; 36415; 36569; 36600; 51702; 71045; 80048; 80053; 80069; 80202; 81001; 82565; 82728; 82803; 82947; 83540; 83550; 83615; 83735; 84100; 84145; 84478; 84484; 85025; 85027; 85379; 86140; 87040; 87070; 87086; 87205; 93005; 93010; 94002; 94003; 94640; 94660; 94762; 96365; 96372-59; 96375; 99285-25; A9270; C1751; C1769; C9113; J0360; J0610; J0692; J1100; J1650; J1815; J1940; J2060; J2250; J2704; J2930; J3010; J3370; J7030; J7040; J7050; J7060